=== PATIENT | female | born 1945 | race Caucasian/White ===

== ENCOUNTER 2021-01-27 07:44 | Observation (INO) | payer MEDICARE, SELFPAY ==
--- NOTE | ~2021-01-27 | CT_ITS ---
EXAMINATION: CT ABDOMEN AND PELVIS WITH CONTRAST CLINICAL INFORMATION: Periumbilical abdominal tenderness. Diarrhea. COMPARISON: Previous CT of the abdomen and pelvis June [address] September 2018 TECHNIQUE: Multidetector volumetric images were obtained from the superior aspect of the liver through the pubic symphysis following administration 75 mL of Omnipaque 350 intravenous contrast. Sagittal and coronal reformatted images were obtained on the technologist's workstation. Oral contrast: Yes This CT examination was performed using dose optimization techniques as appropriate, variously including the following: *Automated exposure control *Adjustment of mA and/or kV according to patient size (this includes techniques or standardized protocols for targeted exams where dose is matched to indication/reason for exam; i.e. extremities or head) *Use of iterative reconstruction technique DLP: 390 mGy-cm FINDINGS: LUNG BASES: There is evidence of severe interstitial disease at the lung bases. There is a 6 x 8 mm right lower lobe nodule axial image 10 series 7. This is new from previous exams. LIVER, GALLBLADDER, AND BILIARY TREE: The gallbladder has been removed. There is intra and extrahepatic biliary duct dilatation. The common bile duct is markedly dilated measuring up to 2.2 cm in diameter. This tapers smoothly in the head of the pancreas. This is similar to previous exam. No common bile duct stone is appreciated. The liver is otherwise unremarkable. PANCREAS: Unremarkable. SPLEEN: Unremarkable. ADRENAL GLANDS: Unremarkable. KIDNEYS AND URETERS: There is right hydronephrosis. The right proximal ureter is dilated the right distal ureter does not appear dilated. No stone is seen. There is abnormal soft tissue seen in the retroperitoneum which may be because of a right ureteral obstruction. The left kidney is smaller than the right. There are areas of left renal cortical thinning or scarring in the left kidney and calyceal dilatation. No dilatation of the left renal pelvis or ureter is seen. BLADDER: Not optimally distended. There is question of mild diffuse bladder wall thickening and some stranding of the perivesicular fat. This is similar to previous exam. GASTROINTESTINAL TRACT: There are fluid-filled loops of small and large bowel. The large bowel is dilated down to the rectum. Correlation with rectal exam to exclude an obstructing rectal lesion is seen. The appendix is not identified. The stomach is unremarkable. ABDOMINAL WALL: There are postsurgical changes to the anterior abdominal wall. LYMPH NODES: There is new abnormal soft tissue seen in the retroperitoneum of the lower abdomen. This is seen in the aortocaval region and appears to significantly narrow the IVC. Appearance is concerning for lymphadenopathy/a neoplastic process. Retroperitoneal fibrosis should also be considered. There is a prominent right inguinal lymph node. This is only partially visualized. This measures 1.6 cm in transverse dimension and appears unchanged. VASCULAR: The IVC appears occluded or narrowed by the new abnormal soft tissue in the retroperitoneum. PELVIC VISCERA: The uterus and ovaries appear to have been removed. There is prominent soft tissue seen in the perineal region. There is a slightly high attenuation asymmetric area in the right perineum measuring 1.3 x 1.8 cm axial image 83 series 3. This is similar to previous exam. OSSEOUS STRUCTURES: There are degenerative changes of the spine and hip joints. No fracture or focal lesion is seen. CT/CT abdomen pelvis w con IMPRESSION: New right hydronephrosis and right proximal ureteral dilatation. The right ureter is dilated down to abnormal new retroperitoneal soft tissue. Differential would include lymphadenopathy and retroperitoneal fibrosis. This narrows IVC. Fluid-filled loops of small and large bowel. The colon is distended and fluid-filled down to the rectum. This probably represents an ileus. Correlation with physical exam to exclude obstructing rectal lesion is recommended. Intra and extrahepatic biliary duct dilatation. Post cholecystectomy. This is stable from previous exams. Severe interstitial lung disease. New 8 mm right lower lobe nodule worrisome for neoplasm. Findings were communicated to Julissa Moser by telephone on 01/27/2021 at 12:20 PM.
--- NOTE | ~2021-01-27 | XR_ITS ---
EXAMINATION: XR ABDOMEN KUB CLINICAL INDICATION: Follow up ileus. COMPARISON: CT of the abdomen and pelvis done on 01/27/2021. TECHNIQUE: AP view of the abdomen. FINDINGS: Nonspecific bowel gas pattern is noted with evidence of gas seen within the large bowel to the level of the rectum. No evidence of any bowel distention is present. The visualized part of the lung dodd appear abnormal showing coarse reticular pattern, most consistent with interstitial lung disease. Postsurgical changes of prior cholecystectomy is noted. XR/XR KUB IMPRESSION: Decompressed bowel gas pattern. Abnormal lung dodd showing features consistent with interstitial lung disease.
--- NOTE | ~2021-01-27 | NM_ITS ---
EXAMINATION: RENAL DYNAMIC IMAGING STUDY WITH LASIX CLINICAL INFORMATION: Hydronephrosis right. Evaluate right side function. History of UTI. COMPARISON: No previous radionuclide renal scan is available for comparison. The diagnostic CT scan of the abdomen and pelvis, dated 01/27/2021, is available for comparison. TECHNIQUE: Serial gamma scintillation camera images were obtained over the posterior trunk during the initial transit and subsequent distribution of a bolus intravenous injection of 10 mCi of Tc-99m DTPA. At 30 minutes later, 31 mg of Lasix was administered intravenously and an additional 20 minutes of images obtained. Because of the patient's urgency to void, this study was terminated prior to the routine 30 minutes post Lasix administration. A post voiding image was obtained. FINDINGS: Initial rapid sequence images show there is moderately diminished perfusion to the left kidney. Perfusion to the right kidney appears normal. Subsequent sequential static images obtained up to 30 minutes show good concentration in the right kidney but moderately diminished concentration in the left kidney. Left kidney appears significantly smaller in size than the right. There is a prominent medullary void in the right kidney which subsequently accumulates excretory activity and is therefore a dilated right renal pelvis. Excretory function is visualized bilaterally by 3 minutes post injection. At 30 minutes postinjection there is visualization of a small amount of urinary bladder activity. At this time there is moderate dilatation and marked retention in the right renal collecting system which appears mildly prominent, but there is no significant retained activity in the left renal pelvis. Because of the patient's urgency to void, this study was terminated earlier than usual. A single post void image shows moderate retention in the right renal collecting system but no significant retention on the left. There is only minimal activity in urinary bladder at this time. Following Lasix administrationT-1/2 washout times following Lasix administration measured from the time of peak activity in each kidney are: Left 14 minutes and right 16 minutes. The relative function of the two kidneys based on the 2-3 minute images are: Left 27% and right 73%. NM/NM renal imaging IMPRESSION: LEFT KIDNEY: This kidney is significantly smaller than the right and shows significantly diminished perfusion and function. Mild to moderate caliectasis is present but there is no dilatation or abnormal retention in the left renal pelvis. Significant outflow obstruction is not present. RIGHT KIDNEY: This kidney is significantly larger than the left and shows significantly better perfusion and function than the left, as quantitated above. Moderate hydronephrosis is present and low-grade partial outflow obstruction, likely at the ureteropelvic junction, is present.
--- NOTE | ~2021-01-27 | XR_ITS ---
EXAMINATION: XR CHEST CLINICAL INFORMATION: Wheezing COMPARISON: Previous chest x-ray and chest CT scan September 2018 TECHNIQUE: Frontal view of the chest was obtained. FINDINGS: The cardiac and mediastinal contours are stable. There are increased interstitial markings suggestive of chronic interstitial lung disease. This may be slightly increased from previous exam from previous exam. No evidence of acute pneumonia is seen. There is no pleural effusion or pneumothorax. There are degenerative changes of the spine and mild scoliosis. XR/XR chest 1V IMPRESSION: Interstitial lung disease.
[2021-01-27 08:16] VITALS: BP 103/63; PULSE 80; RESP 16; TEMP 36.4; O2SAT 100; BMI 23.6
--- NOTE | 2021-01-27 08:39 | ECG_ITS ---
Test Reason : ABD PAIN Blood Pressure : / mmHG Vent. Rate : 069 BPM Atrial Rate : 069 BPM P-R Int : 138 ms QRS Dur : 080 ms QT Int : 400 ms P-R-T Axes : 063 062 031 degrees QTc Int : 428 ms Normal sinus rhythm Possible Left atrial enlargement Borderline ECG When compared with ECG of 11-FEB-2019 21:08, No significant change was found Referred By: Julissa Moser Electronically Signed By:DAVE MARIA
--- NOTE | 2021-01-27 08:46 | PC.NURSE ---
Spoke to pts daughter Pratima (pt poor historian, baseline confusion) who states pt has had abd pain x 4 days with low back pain and diarrhea. Pt is also lactose and intolerant and at times consumes dairy at home. Pt also is 02 dependent with ambulation. Daughter also reports sl increase in confusion lately. Contact for daughter [phone]
--- NOTE | 2021-01-27 08:51 | ED_ITS ---
HPI - Abdominal Pain General Chief Complaint: Abdominal Pain Stated Complaint: ABD PAIN DIARRHEA Time Seen by Provider: 01/27/21 08:08 Source: patient and family History of Present Illness HPI narrative: 75-year-old female with past medical history of COPD on chronic O2, diabetes, CKD, ovarian CA S/P hysterectomy, dementia, DVTs on Eliquis, presenting to the ED complaining of abdominal pain and nonbloody diarrhea x4 days. Patient is poor historian due to baseline dementia, most history obtained from daughter. Denies fever, chills, suspicious food intake, recent travel, dysuria/hematuria Related Data Allergies Allergy/AdvReac Type Severity Reaction Status Date / Time fish derived [FISH] Allergy Intermediate RASH Verified 01/27/21 08:45 iodine [IODINE] Allergy Intermediate BLISTERS Verified 01/27/21 08:45 Penicillins [PENICILLINS] Allergy Mild RASH Verified 01/27/21 08:45 oxycodone [OXYCODONE] Allergy Unknown ITCHING Verified 01/27/21 08:45 Review of Systems Review of Systems Constitutional: No Fever, No Chills Cardiovascular: No Chest Pain, +chronic SOB Respiratory: No Cough Gastrointestinal: No Nausea, No Vomiting,+ Diarrhea, No Constipation, + Abdominal pain, No Hematochezia, No Melena Genitourinary: No Dysuria, No Hematuria, No Flank Pain Skin: No Skin Lesions, No rash History limited due to patient's baseline dementia Yes all other systems are reviewed and are negative Physical Exam Vital Signs: Vital Signs: Last Vital Signs Temp 97.6 F 01/27/21 08:16 Pulse 80 01/27/21 13:14 Resp 16 01/27/21 13:14 BP 110/68 01/27/21 13:14 Pulse Ox 98 01/27/21 13:14 Body Mass Index 23.6 Const: General: cooperative, healthy appearing and comfortable Orie ntation/consciousness: oriented to person and oriented to place Limitations: no limitations HENMT: Head: Yes normal to inspection Ears: hearing grossly normal bilaterally General nose exam: Normal external nose present Face and sinus: Yes normal facial exam Eyes: General: appearance normal, both eyes and all related structures EOM: EOMs intact bilaterally Neck: Neck: Yes normal visual inspection Resp: Effort & Inspection: normal respiratory effort Auscultation: clear to auscultation bilaterally and wheezes expiratory wheezes and throughout Cardio: Rate: regular rate Heart sounds: S1 normal heart sound present and S2 normal heart sound present GI: Inspection: Yes normal to inspection Palpation (GI): Soft to palpation, Tenderness to palpation present (GI) periumbilically, no guarding and not rigid : General: Yes no CVA tenderness Back/Spine/Pelvis: Back: no CVA tenderness Skin: Rashes: no rashes Wounds: no wounds Neuro: General: oriented to person and oriented to place Extrem: General: Yes normal to inspection and Yes no pedal edema Course Course Course Narrative: -no leukocytosis. H&H stable. Labs otherwise unremarkable XR chest 1V IMPRESSION: Interstitial lung disease. CT abdomen pelvis w con IMPRESSION: New right hydronephrosis and right proximal ureteral dilatation. The right ureter is dilated down to abnormal new retroperitoneal soft tissue. Differential would include lymphadenopathy and retroperitoneal fibrosis. This narrows IVC. Fluid-filled loops of small and large bowel. The colon is distended and fluid-filled down to the rectum. This probably represents an ileus. Correlation with physical exam to exclude obstructing rectal lesion is recommended. Intra and extrahepatic biliary duct dilatation. Post cholecystectomy. This is stable from previous exams. Severe interstitial lung disease. New 8 mm right lower lobe nodule worrisome for neoplasm. >> no appreciable mass/lesion on rectal exam. Case discussed with hospitalist. Plan for admission for further evaluation/workup -UA contaminated but infected. IV ceftriaxone ordered MDM - Abdominal Pain MDM Narrative Medical decision making narrative: 75-year-old female with past medical history of COPD on chronic O2, diabetes, CKD, ovarian CA S/P hysterectomy, dementia, DVTs on Eliquis, presenting to the ED complaining of abdominal pain and nonbloody diarrhea x4 days. On exam VSS, NAD, baseline dementia/confused, lungs with expiratory wheeze, abdomen soft with mild periumbilical tenderness to palpation, no rebound or guarding. Concern for gastroenteritis vs colitis vs food poisoning vs appendicitis. Rule out other infectious etiology and dehydration Plan: Labs, UA, CT, IVF, reassess Medical Records Attestation: I reviewed the patient's medical records. Lab Data Attestation: I reviewed the patient's lab results. Result diagrams: 01/27/21 09:30 01/27/21 09:30 Labs: Lab Results 01/27/21 01/27/21 01/27/21 Range/Units 09:30 09:30 09:30 WBC 7.6 (4.8-10.8) X10*3/uL RBC 4.05 L (4.20-5.50) X10*6/uL Hgb 12.7 (12.0-16.0) g/dl Hct 40.3 (37-47) % MCV 99.5 H (80-98) fL MCH 31.4 (27.0-33.0) pg MCHC 31.5 (31.0-35.0) g/dl RDW 14.5 (11.0-16.0) % Plt Count 431 H (160-400) X10*3/uL MPV 9.4 (9.4-12.3) fL Immature Gran % (Auto) 0.1 (0.0-0.4) % Neut % (Auto) 63.3 (45-73) % Lymph % (Auto) 19.8 L (20-40) % [place] % (Auto) 10.6 (2-11) % Eos % (Auto) 5.4 H (0-4) % Baso % (Auto) 0.8 (0-2) % Lymph # (Auto) 1.5 (1.2-4.9) X10*3/uL [place] # (Auto) 0.8 (0.1-1.2) X10*3/uL Eos # (Auto) 0.4 (0.0-0.4) X10*3/uL Baso # (Auto) 0.1 (0.0-0.2) X10*3/uL Abs Immat Gran (auto) 0.01 (0.00-0.03) X10*3/uL Absolute Neuts (auto) 4.8 (2.0-8.3) X10*3/uL Absolute Nucleated RBC 0.000 (0.0-0.012) X10*3/uL Nucleated RBC % (auto) 0.0 (0.0-0.2) /100WBC PT 19.7 H (10.8-13.0) SEC INR 1.7 H (0.9-1.1) APTT 38.0 (24.1-38.0) SEC Sodium 142 (135-145) mmol/L Potassium 4.4 (3.3-5.1) mmol/L Chloride 105 (96-108) mmol/L Carbon Dioxide 27 (22-29) mmol/L Anion Gap 14 (12-20) BUN 17 H (9-16) mg/dL Creatinine 1.16 (0.5-1.4) mg/dL Estim Creat Clear Calc 36.7 Estimated GFR 46 Random Glucose 96 (60-115) mg/dL Calcium 9.3 (8.4-10.2) mg/dL Magnesium 1.7 (1.6-2.6) mg/dL Total Bilirubin 0.5 (0.0-1.0) mg/dL Direct Bilirubin 0.2 (0.0-0.5) mg/dL AST 18 (5-31) U/L ALT 10 (0-31) U/L Alkaline Phosphatase 117 (39-117) U/L B-Natriuretic Peptide (<100) pg/mL Total Protein 7.8 (6.5-8.0) g/dL Albumin 3.8 (3.5-5.0) g/dL Lipase (8-78) U/L Urine Color Urine Appearance Urine pH (5.0-8.0) Ur Specific [place] (1.005-1.025) Urine Protein (NEG-TRACE) MG/DL Urine Glucose (UA) (NEG) MG/DL Urine Ketones (NEG) MG/DL Urine Blood (NEG) Urine Nitrite (NEG) Ur Leukocyte Esterase (NEG) Urine RBC (0) /HPF Urine WBC (0-4) /HPF Ur Squamous Epith Cells /LPF Urine Bacteria /LPF Coronavirus (PCR) (Negative) Influenza Type A (PCR) (Negative) Influenza Type B (PCR) (Negative) RSV RNA Qual (PCR) (Negative) 01/27/21 01/27/21 01/27/21 Range/Units 09:30 09:30 09:30 WBC (4.8-10.8) X10*3/uL RBC (4.20-5.50) X10*6/uL Hgb (12.0-16.0) g/dl Hct (37-47) % MCV (80-98) fL MCH (27.0-33.0) pg MCHC (31.0-35.0) g/dl RDW (11.0-16.0) % Plt Count (160-400) X10*3/uL MPV (9.4-12.3) fL Immature Gran % (Auto) (0.0-0.4) % Neut % (Auto) (45-73) % Lymph % (Auto) (20-40) % [place] % (Auto) (2-11) % Eos % (Auto) (0-4) % Baso % (Auto) (0-2) % Lymph # (Auto) (1.2-4.9) X10*3/uL [place] # (Auto) (0.1-1.2) X10*3/uL Eos # (Auto) (0.0-0.4) X10*3/uL Baso # (Auto) (0.0-0.2) X10*3/uL Abs Immat Gran (auto) (0.00-0.03) X10*3/uL Absolute Neuts (auto) (2.0-8.3) X10*3/uL Absolute Nucleated RBC (0.0-0.012) X10*3/uL Nucleated RBC % (auto) (0.0-0.2) /100WBC PT (10.8-13.0) SEC INR (0.9-1.1) APTT (24.1-38.0) SEC Sodium (135-145) mmol/L Potassium (3.3-5.1) mmol/L Chloride (96-108) mmol/L Carbon Dioxide (22-29) mmol/L Anion Gap (12-20) BUN (9-16) mg/dL Creatinine (0.5-1.4) mg/dL Estim Creat Clear Calc Estimated GFR Random Glucose (60-115) mg/dL Calcium (8.4-10.2) mg/dL Magnesium (1.6-2.6) mg/dL Total Bilirubin (0.0-1.0) mg/dL Direct Bilirubin (0.0-0.5) mg/dL AST (5-31) U/L ALT (0-31) U/L Alkaline Phosphatase (39-117) U/L B-Natriuretic Peptide 15 (<100) pg/mL Total Protein (6.5-8.0) g/dL Albumin (3.5-5.0) g/dL Lipase 21 (8-78) U/L Urine Color Urine Appearance Urine pH (5.0-8.0) Ur Specific [place] (1.005-1.025) Urine Protein (NEG-TRACE) MG/DL Urine Glucose (UA) (NEG) MG/DL Urine Ketones (NEG) MG/DL Urine Blood (NEG) Urine Nitrite (NEG) Ur Leukocyte Esterase (NEG) Urine RBC (0) /HPF Urine WBC (0-4) /HPF Ur Squamous Epith Cells /LPF Urine Bacteria /LPF Coronavirus (PCR) NEGATIVE (Negative) Influenza Type A (PCR) NEGATIVE (Negative) Influenza Type B (PCR) NEGATIVE (Negative) RSV RNA Qual (PCR) NEGATIVE (Negative) 01/27/21 Range/Units 11:06 WBC (4.8-10.8) X10*3/uL RBC (4.20-5.50) X10*6/uL Hgb (12.0-16.0) g/dl Hct (37-47) % MCV (80-98) fL MCH (27.0-33.0) pg MCHC (31.0-35.0) g/dl RDW (11.0-16.0) % Plt Count (160-400) X10*3/uL MPV (9.4-12.3) fL Immature Gran % (Auto) (0.0-0.4) % Neut % (Auto) (45-73) % Lymph % (Auto) (20-40) % [place] % (Auto) (2-11) % Eos % (Auto) (0-4) % Baso % (Auto) (0-2) % Lymph # (Auto) (1.2-4.9) X10*3/uL [place] # (Auto) (0.1-1.2) X10*3/uL Eos # (Auto) (0.0-0.4) X10*3/uL Baso # (Auto) (0.0-0.2) X10*3/uL Abs Immat Gran (auto) (0.00-0.03) X10*3/uL Absolute Neuts (auto) (2.0-8.3) X10*3/uL Absolute Nucleated RBC (0.0-0.012) X10*3/uL Nucleated RBC % (auto) (0.0-0.2) /100WBC PT (10.8-13.0) SEC INR (0.9-1.1) APTT (24.1-38.0) SEC Sodium (135-145) mmol/L Potassium (3.3-5.1) mmol/L Chloride (96-108) mmol/L Carbon Dioxide (22-29) mmol/L Anion Gap (12-20) BUN (9-16) mg/dL Creatinine (0.5-1.4) mg/dL Estim Creat Clear Calc Estimated GFR Random Glucose (60-115) mg/dL Calcium (8.4-10.2) mg/dL Magnesium (1.6-2.6) mg/dL Total Bilirubin (0.0-1.0) mg/dL Direct Bilirubin (0.0-0.5) mg/dL AST (5-31) U/L ALT (0-31) U/L Alkaline Phosphatase (39-117) U/L B-Natriuretic Peptide (<100) pg/mL Total Protein (6.5-8.0) g/dL Albumin (3.5-5.0) g/dL Lipase (8-78) U/L Urine Color YELLOW Urine Appearance CLOUDY Urine pH 6.0 (5.0-8.0) Ur Specific [place] 1.025 (1.005-1.025) Urine Protein NEG (NEG-TRACE) MG/DL Urine Glucose (UA) NEG (NEG) MG/DL Urine Ketones NEG (NEG) MG/DL Urine Blood TRACE (NEG) Urine Nitrite NEG (NEG) Ur Leukocyte Esterase 2+ H (NEG) Urine RBC 0-2 (0) /HPF Urine WBC 30-49 H (0-4) /HPF Ur Squamous Epith Cells 4+ /LPF Urine Bacteria 4+ /LPF Coronavirus (PCR) (Negative) Influenza Type A (PCR) (Negative) Influenza Type B (PCR) (Negative) RSV RNA Qual (PCR) (Negative) Discharge Plan Discharge Clinical Impression: Acute UTI, Ileus, Hydronephrosis, Lung nodule Patient Disposition: Admitted As Inpatient [facility] Past Medical History Attestation statement: The following information was validated with the patient. Medical History (Updated 01/27/21 @ 14:30 by MIYA Fuentes) COPD (chronic obstructive pulmonary disease) Diabetes Kidney disease Ovarian cancer Social History Social History Smoking Status: Never smoker Use of substances other than those prescribed or required for medical reasons: No Advance Directives: No Advance Directives Information Provided: No
[2021-01-27] MEDS: 0.9 % Sodium Chloride 1,000 ML 999 ML IVCONT (09:34)
[2021-01-27 09:36] LABS: MANUAL DIFF FLAG NO
[2021-01-27 09:39] LABS: Basophils Absolute Auto 0.1 X10*3/uL (0.0-0.2); Basophils Percent Auto 0.8 % (0-2); Eosinophils Absolute Auto 0.4 X10*3/uL (0.0-0.4); Eosinophils Percent Auto 5.4 % (0-4); Hematocrit 40.3 % (37-47); Hemoglobin 12.7 g/dl (12.0-16.0); Imm Gran Abs Auto 0.01 X10*3/uL (0.00-0.03); Imm Gran Pct Auto 0.1 % (0.0-0.4); Lymphocytes Absolute Auto 1.5 X10*3/uL (1.2-4.9); Lymphocytes Percent Auto 19.8 % (20-40); Mean Corpuscular HGB Conc 31.5 g/dl (31.0-35.0); Mean Corpuscular Hemoglobin 31.4 pg (27.0-33.0); Mean Corpuscular Volume 99.5 fL (80-98); Mean Platelet Volume 9.4 fL (9.4-12.3); Monocytes Absolute Auto 0.8 X10*3/uL (0.1-1.2); Monocytes Percent Auto 10.6 % (2-11); Neutrophils Absolute Auto 4.8 X10*3/uL (2.0-8.3); Neutrophils Percent Auto 63.3 % (45-73); Platelet Count 431 X10*3/uL (160-400); Red Blood Count 4.05 X10*6/uL (4.20-5.50); Red Cell Distribution Width 14.5 % (11.0-16.0); White Blood Count 7.6 X10*3/uL (4.8-10.8)
[2021-01-27] MEDS: Albuterol Sulfate 90 MCG 8 GM INHALER 4 PUFF INHALE (09:40)
--- NOTE | 2021-01-27 09:45 | PC.NURSE ---
Pt resting comfortably, on 2lpm via nc with sat at 99%. fine crackles heard to right middle and lower lobes, no sob or distress. NSR on tele. Awaiting lab results/xray
[2021-01-27 09:54] LABS: INTERNATIONAL NORM RATIO 1.7 (0.9-1.1); Prothrombin Time 19.7 SEC (10.8-13.0)
[2021-01-27 10:02] LABS: Lipase 21 U/L (8-78)
[2021-01-27 10:03] LABS: Alanine Aminotransferase 10 U/L (0-31); Albumin Level 3.8 g/dL (3.5-5.0); Alkaline Phosphatase 117 U/L (39-117); Anion Gap 14 (12-20); Aspartate Amino Transferase 18 U/L (5-31); Bilirubin Direct 0.2 mg/dL (0.0-0.5); Bilirubin Total 0.5 mg/dL (0.0-1.0); Blood Urea Nitrogen 17 mg/dL (9-16); Calcium 9.3 mg/dL (8.4-10.2); Carbon Dioxide 27 mmol/L (22-29); Chloride 105 mmol/L (96-108); Creatinine Clr Calc Pharmacy 36.7; Estimated Glomerular Filt Rate 46; Glucose Random 96 mg/dL (60-115); Magnesium 1.7 mg/dL (1.6-2.6); Potassium 4.4 mmol/L (3.3-5.1); Sodium 142 mmol/L (135-145); Total Protein 7.8 g/dL (6.5-8.0)
[2021-01-27 10:07] LABS: B Type Natriuretic Peptide 15 pg/mL (<100)
[2021-01-27 10:19] LABS: Influenza A PCR NEGATIVE (Negative); Influenza B PCR NEGATIVE (Negative); Resp Syncy Virus RNA Qual PCR NEGATIVE (Negative); SARS COV2 PCR INHOUSE NEGATIVE (Negative)
[2021-01-27 10:59] VITALS: BP 113/68; PULSE 78; RESP 16; O2SAT 97
[2021-01-27 11:14] LABS: Glucose Urine UA NEG (NEG); Leukocyte Esterase Urine 2+ (NEG); Nitrite Urine NEG (NEG); Specific Gravity - Urine 1.025 (1.005-1.025); UACC Culture Trigger YES; Urine Blood TRACE (NEG); Urine Ketones NEG (NEG); Urine Protein NEG (NEG-TRACE)
[2021-01-27 11:15] LABS: Appearance Urine CLOUDY; Color Urine YELLOW
[2021-01-27] MEDS: iohexoL 350 MG/ML 75 ML INFUS..BTL IV (11:31)
[2021-01-27 11:36] LABS: Bacteria Urine 4+ /LPF; RBC Urine 0-2 /HPF (0); Squamous Epithelial Cell Urine 4+ /LPF; WBC Urine 30-49 /HPF (0-4)
[2021-01-27] MEDS: diphenhydrAMINE HCL 50 MG/ML VIAL IVPUSH (11:47)
[2021-01-27 13:14] VITALS: BP 110/68; PULSE 80; RESP 16; O2SAT 98
--- NOTE | 2021-01-27 14:10 | PC.NURSE ---
This RN and Julissa HOLLIDAY to bedside for rectal exam
--- NOTE | 2021-01-27 14:26 | PM.EVENT ---
Event Note Date of Service: 01/27/21 Event Note: Patient seen and examined independently and was present during hunt portion of E/M service. Agree with midlevel's history, physical, assessment, and plan. 75F presented with abdominal pain found to have ileus and right hydro with suspicious retroperitoneal mass and lung nodule laxatives ocnology
[2021-01-27] MEDS: cefTRIAXone sodium 1 GM in 0.9 % Sodium Chloride 50 ML IV (14:37)
[2021-01-27 14:40] VITALS: BP 124/70; PULSE 77; RESP 16; O2SAT 98
--- NOTE | 2021-01-27 14:41 | PC.NURSE ---
Plan for admission Julissa HOLLIDAY spoke to daughter regarding update/results and plan for admission. Pt denies pain or discomfort at this time. NSR on tele
--- NOTE | 2021-01-27 15:27 | P.HPHOSP_ITS ---
History of Present Illness Date of Service: 01/27/21 Chief Complaint: Abdominal pain This is a 75-year-old female who presents to the emergency department with abdominal pain. She reports abdominal pain for the past 4 days primarily located in her left lower quadrant. She denies nausea or vomiting. She has had some diarrhea but reports a small formed stool yesterday. Currently she is not experiencing any abdominal pain. She reports decreased appetite as well as weight loss, although she is unsure how much. Lab work was unremarkable. Scan of the abdomen which showed new right hydronephrosis and right proximal ureteral dilatation as well as abnormal new retroperitoneal soft tissue. Also seen were fluid filled loops of small and large bowel the colon is distended and fluid- filled down to the rectum. This probably represents an ileus. A new 8 mm right lower lobe nodule is also present and worrisome for neoplasm. Review of Systems Review of Systems: Yes all other systems are reviewed and are negative Constitutional: Constitutional: Denies chills and Denies fever(s) Cardiovascular: Cardiovascular: Denies chest pain and Denies dyspnea Respiratory: Respiratory: Denies cough and Denies dyspnea Gastrointestinal: Gastrointestinal: Reports abdominal pain, Reports early satiety, Reports diarrhea, Denies nausea and Denies vomiting [facility] Medical History (Updated 01/27/21 @ 15:37 by MIYA Edmonds) CKD (chronic kidney disease) COPD (chronic obstructive pulmonary disease) Diabetes DVT (deep venous thrombosis) Endometrial adenocarcinoma HTN (hypertension) Kidney disease Pulmonary fibrosis Functional capacity: uses cane/walker Family History Father Colon cancer Family history: reviewed and not pertinent Surgical History (Updated 01/27/21 @ 15:37 by MIYA Edmonds) H/O hysterectomy with oophorectomy Hx of cholecystectomy S/P IVC filter Social History (Updated 01/27/21 @ 15:38 by MIYA Edmonds) Household Members: Other Alcohol intake: never Smoking Status: Never smoker Use of substances other than those prescribed or required for medical reasons: No Advance Directives: No Advance Directives Information Provided: No Meds Allergies Allergy/AdvReac Type Severity Reaction Status Date / Time fish derived [FISH] Allergy Intermediate RASH Verified 01/27/21 08:45 iodine [IODINE] Allergy Intermediate BLISTERS Verified 01/27/21 08:45 Penicillins [PENICILLINS] Allergy Mild RASH Verified 01/27/21 08:45 oxycodone [OXYCODONE] Allergy Unknown ITCHING Verified 01/27/21 08:45 Active Medications: Current Medications Generic Name Dose Route Start Last Admin Trade Name Freq PRN Reason Stop Dose Admin Pharmacy Consult 1 each 01/27/21 15:01 Consult Rx Perform Med Rec MISCELLANE ONCE PRN Consult order Home Medications Medication Instructions Recorded Confirmed Last Taken Type apixaban [Eliquis] 5 mg PO BID 01/27/21 01/27/21 Unknown History atorvastatin 20 mg PO DAILY 01/27/21 01/27/21 Unknown History donepezil 5 mg PO BEDTIME 01/27/21 01/27/21 Unknown History dulaglutide [Trulicity] 0.75 mg SUBCUT QWEEK 01/27/21 01/27/21 Unknown History famotidine 20 mg PO BID 01/27/21 01/27/21 Unknown History glipizide 5 mg PO BIDAC 01/27/21 01/27/21 Unknown History halobetasol propionate 1 appl TOPICAL BID 01/27/21 01/27/21 Unknown History ipratropium-albuterol 1 vial INHALATION QID PRN 01/27/21 01/27/21 Unknown History Physical Exam Vital Signs and Narrative: Vital Signs: Last Vital Signs Temp 97.6 F 01/27/21 08:16 Pulse 77 01/27/21 14:40 Resp 16 01/27/21 14:40 BP 124/70 01/27/21 14:40 Pulse Ox 98 01/27/21 14:40 Body Mass Index 23.6 Const: General: cooperative, comfortable, no acute distress, alert and awake Nutritional Appearance: well nourished Orientation/consciousness: patient oriented x3 HENMT: Head: Yes normocephalic and Yes atraumatic Eyes: Sclerae: sclerae normal Chest: Chest palpation & inspection: normal inspection of the chest Resp: Effort & Inspection: normal respiratory effort and no respiratory distress Auscultation: clear to auscultation bilaterally Cardio: Rate: regular rate Rhythm: regular rhythm GI: Palpation (GI): Soft to palpation and nontender Skin: General skin exam: no rashes or lesions noted Neuro: General: patient oriented x3 Cranial nerves: Yes CN's II-XII intact bilaterally and Yes Bilaterally intact EOM present Extrem: General: Yes normal to inspection Results Labs CBC and Chem 7: 01/27/21 09:30 01/27/21 09:30 Labs: Laboratory Results - last 24 hr 01/27/21 01/27/21 01/27/21 09:30 09:30 09:30 MCV 99.5 H MCH 31.4 MCHC 31.5 RDW 14.5 Plt Count 431 H MPV 9.4 Immature Gran % (Auto) 0.1 Neut % (Auto) 63.3 Lymph % (Auto) 19.8 L [place] % (Auto) 10.6 Eos % (Auto) 5.4 H Baso % (Auto) 0.8 Lymph # (Auto) 1.5 [place] # (Auto) 0.8 Eos # (Auto) 0.4 Baso # (Auto) 0.1 Abs Immat Gran (auto) 0.01 Absolute Neuts (auto) 4.8 Absolute Nucleated RBC 0.000 Nucleated RBC % (auto) 0.0 PT 19.7 H INR 1.7 H APTT 38.0 Anion Gap 14 Estim Creat Clear Calc 36.7 Estimated GFR 46 Random Glucose 96 Calcium 9.3 Magnesium 1.7 Total Bilirubin 0.5 Direct Bilirubin 0.2 AST 18 ALT 10 Alkaline Phosphatase 117 B-Natriuretic Peptide Total Protein 7.8 Albumin 3.8 Lipase Urine Color Urine Appearance Urine pH Ur Specific [place] Urine Protein Urine Glucose (UA) Urine Ketones Urine Blood Urine Nitrite Ur Leukocyte Esterase Urine RBC Urine WBC Ur Squamous Epith Cells Urine Bacteria Coronavirus (PCR) Influenza Type A (PCR) Influenza Type B (PCR) RSV RNA Qual (PCR) 01/27/21 01/27/21 01/27/21 09:30 09:30 09:30 MCV MCH MCHC RDW Plt Count MPV Immature Gran % (Auto) Neut % (Auto) Lymph % (Auto) [place] % (Auto) Eos % (Auto) Baso % (Auto) Lymph # (Auto) [place] # (Auto) Eos # (Auto) Baso # (Auto) Abs Immat Gran (auto) Absolute Neuts (auto) Absolute Nucleated RBC Nucleated RBC % (auto) PT INR APTT Anion Gap Estim Creat Clear Calc Estimated GFR Random Glucose Calcium Magnesium Total Bilirubin Direct Bilirubin AST ALT Alkaline Phosphatase B-Natriuretic Peptide 15 Total Protein Albumin Lipase 21 Urine Color Urine Appearance Urine pH Ur Specific [place] Urine Protein Urine Glucose (UA) Urine Ketones Urine Blood Urine Nitrite Ur Leukocyte Esterase Urine RBC Urine WBC Ur Squamous Epith Cells Urine Bacteria Coronavirus (PCR) NEGATIVE Influenza Type A (PCR) NEGATIVE Influenza Type B (PCR) NEGATIVE RSV RNA Qual (PCR) NEGATIVE 01/27/21 11:06 MCV MCH MCHC RDW Plt Count MPV Immature Gran % (Auto) Neut % (Auto) Lymph % (Auto) [place] % (Auto) Eos % (Auto) Baso % (Auto) Lymph # (Auto) [place] # (Auto) Eos # (Auto) Baso # (Auto) Abs Immat Gran (auto) Absolute Neuts (auto) Absolute Nucleated RBC Nucleated RBC % (auto) PT INR APTT Anion Gap Estim Creat Clear Calc Estimated GFR Random Glucose Calcium Magnesium Total Bilirubin Direct Bilirubin AST ALT Alkaline Phosphatase B-Natriuretic Peptide Total Protein Albumin Lipase Urine Color YELLOW Urine Appearance CLOUDY Urine pH 6.0 Ur Specific [place] 1.025 Urine Protein NEG Urine Glucose (UA) NEG Urine Ketones NEG Urine Blood TRACE Urine Nitrite NEG Ur Leukocyte Esterase 2+ H Urine RBC 0-2 Urine WBC 30-49 H Ur Squamous Epith Cells 4+ Urine Bacteria 4+ Coronavirus (PCR) Influenza Type A (PCR) Influenza Type B (PCR) RSV RNA Qual (PCR) Imaging Radiologist's Impressions: Impressions Chest X-Ray 01/27/21 08:40 IMPRESSION: Interstitial lung disease. Abdomen/Pelvis CT 01/27/21 10:53 IMPRESSION: New right hydronephrosis and right proximal ureteral dilatation. The right ureter is dilated down to abnormal new retroperitoneal soft tissue. Differential would include lymphadenopathy and retroperitoneal fibrosis. This narrows IVC. Fluid-filled loops of small and large bowel. The colon is distended and fluid-filled down to the rectum. This probably represents an ileus. Correlation with physical exam to exclude obstructing rectal lesion is recommended. Intra and extrahepatic biliary duct dilatation. Post cholecystectomy. This is stable from previous exams. Severe interstitial lung disease. New 8 mm right lower lobe nodule worrisome for neoplasm. Findings were communicated to Julissa Moser by telephone on 01/27/2021 at 12:20 PM. Assessment and Plan (1) Lung nodule: Status: Acute (2) Hydronephrosis: Status: Acute (3) Ileus: Status: Acute This is a 75-year-old female with a history of mild dementia, diabetes, DVT, hypertension, CKD, endometrial adenocarcinoma s/p chemotherapy, radiation and total abdominal hysterectomy who presents to the ED with abdominal pain found to have ileus, right hydronephrosis and lung nodule. Right-sided hydronephrosis -urology consult New lung nodule -oncology consult new retroperitoneal soft tissue lymphadenopathy vs fibrosis ? r/t whole pelvic radiation from endometrial adenocarcinoma -oncology consult Abdominal pain Ileus on CT. no rectal mass appreciated on exam per ED Abdominal pain improved -will give dose of MiraLax asymptomatic bacteruria give empiric ceftriaxone in ED FU Urine cultures Diabetes Hold glipizide due to decreased p.o. intake Trulicity non formulary -SSI, POC On Eliquis ? r/t h/o dvt Hyperlipidemia Continue statin CKD Creatinine at baseline Mild Dementia Continue donepezil DVT prophylaxis-Eliquis this case was discussed with Dr. Tirado
[2021-01-27 15:55] VITALS: BP 121/69; PULSE 78; RESP 16; TEMP 36.4; O2SAT 98
[2021-01-27 20:00] VITALS: BP 141/83; PULSE 83; RESP 14; TEMP 36.5; O2SAT 96
[2021-01-27] MEDS: 0.9 % Sodium Chloride Flush 3 ML SYRINGE IVFLUSH ×2 (20:12→20:38)
[2021-01-27] MEDS: Donepezil HCl 5 MG TABLET PO (20:38)
[2021-01-27] MEDS: Famotidine 20 MG TABLET PO (20:38)
[2021-01-27] MEDS: Apixaban 5 MG TABLET PO (20:38)
[2021-01-27] MEDS: polyethylene glycoL 3350 17 GM POWD.PACK PO (20:38)
[2021-01-27 20:44] LABS: Glucose, Whole Blood 122 mg/dL (60-115)
[2021-01-28] VITALS (7 sets, daily range): BP systolic 101–141; BP diastolic 68–82; PULSE 86–105; RESP 14–20; TEMP 36.4–36.9; O2SAT 87–96
[2021-01-28 07:04] LABS: MANUAL DIFF FLAG NO
[2021-01-28 07:18] LABS: Basophils Absolute Auto 0.1 X10*3/uL (0.0-0.2); Basophils Percent Auto 0.5 % (0-2); Eosinophils Absolute Auto 0.5 X10*3/uL (0.0-0.4); Eosinophils Percent Auto 5.5 % (0-4); Hematocrit 38.6 % (37-47); Hemoglobin 12.5 g/dl (12.0-16.0); Imm Gran Abs Auto 0.03 X10*3/uL (0.00-0.03); Imm Gran Pct Auto 0.3 % (0.0-0.4); Lymphocytes Absolute Auto 1.4 X10*3/uL (1.2-4.9); Lymphocytes Percent Auto 15.5 % (20-40); Mean Corpuscular HGB Conc 32.4 g/dl (31.0-35.0); Mean Corpuscular Hemoglobin 31.7 pg (27.0-33.0); Mean Platelet Volume 9.6 fL (9.4-12.3); Monocytes Absolute Auto 0.9 X10*3/uL (0.1-1.2); Monocytes Percent Auto 9.9 % (2-11); Neutrophils Absolute Auto 6.3 X10*3/uL (2.0-8.3); Neutrophils Percent Auto 68.3 % (45-73); Platelet Count 425 X10*3/uL (160-400); Red Blood Count 3.94 X10*6/uL (4.20-5.50); Red Cell Distribution Width 14.1 % (11.0-16.0); White Blood Count 9.3 X10*3/uL (4.8-10.8)
[2021-01-28 07:31] LABS: Glucose, Whole Blood 77 mg/dL (60-115)
[2021-01-28 07:41] LABS: Blood Urea Nitrogen 16 mg/dL (9-16); Creatinine Clr Calc Pharmacy 41.3; Estimated Glomerular Filt Rate 52; Glucose Random 80 mg/dL (60-115)
[2021-01-28 08:03] LABS: Anion Gap 13 (12-20); Carbon Dioxide 26 mmol/L (22-29); Chloride 105 mmol/L (96-108); Potassium 4.4 mmol/L (3.3-5.1); Sodium 140 mmol/L (135-145)
[2021-01-28] MEDS: Famotidine 20 MG TABLET PO ×2 (08:29→20:41)
[2021-01-28] MEDS: Docusate Sodium 100 MG CAPSULE PO (08:29)
[2021-01-28] MEDS: Atorvastatin Calcium 20 MG TABLET PO (08:29)
[2021-01-28] MEDS: 0.9 % Sodium Chloride Flush 3 ML SYRINGE IVFLUSH ×3 (08:29→20:48)
[2021-01-28] MEDS: Apixaban 5 MG TABLET PO ×2 (08:29→20:41)
[2021-01-28] MEDS: Betamethasone Dip Aug 0.05% Cr 15 GM TUBE 1 APPL TOPICAL ×2 (08:29→20:42)
--- NOTE | 2021-01-28 09:53 | HO.PM.IMPN ---
Subjective Subjective Date of Service: 01/28/21 Interval History: abd pain resolved Cardiovascular Cardiovascular: Reports no additional cardiovascular complaints Gastrointestinal Gastrointestinal: Reports no additional gastrointestinal complaints Physical Exam Vital Signs: Vital Signs: Last Vital Signs Temp 97.5 F 01/28/21 07:14 Pulse 88 01/28/21 07:14 Resp 17 01/28/21 07:14 BP 111/72 01/28/21 07:14 Pulse Ox 96 01/28/21 07:14 Body Mass Index 23.6 General: Alert, no acute distress Resp: CTA bilateral CVS: S1,S2,RRR GI: soft, non tender, non distended Neuro: motor grossly intact Psych: appropriate affect Objective Data Current Medications Generic Name Dose Route Start Last Admin Trade Name Freq PRN Reason Stop Dose Admin Acetaminophen 650 mg 01/27/21 18:46 Acetaminophen 325 Mg Tablet PO Q6H PRN Pain, Mild (Pain Scale 1-3) Albuterol/Ipratropium 3 ml 01/27/21 18:46 Albuterol/Iprat 2.5/0.5mg 3 Ml Ampul.Neb INHALE QID PRN wheezing Apixaban 5 mg 01/27/21 21:00 01/28/21 08:29 Apixaban 5 Mg Tablet PO 5 mg BID RUBEN Administration Atorvastatin Calcium 20 mg 01/28/21 09:00 01/28/21 08:29 Atorvastatin Calcium 20 Mg Tablet PO 20 mg DAILY RUBEN Administration Betamethasone Dipropion Augmented 1 appl 01/27/21 21:00 01/28/21 08:29 Betamethasone Dip Aug 0.05% Cr 15 Gm Tube TOPICAL 1 appl BID RUBEN Administration Docusate Sodium 100 mg 01/28/21 09:00 01/28/21 08:29 Docusate Sodium 100 Mg Capsule PO 100 mg DAILY RUBEN Administration Donepezil HCl 5 mg 01/27/21 21:00 01/27/21 20:38 Donepezil Hcl 5 Mg Tablet PO 5 mg BEDTIME RUBEN Administration Famotidine 20 mg 01/27/21 21:00 01/28/21 08:29 Famotidine 20 Mg Tablet PO 20 mg BID RUBEN Administration Insulin Human Lispro 0 unit 01/27/21 18:46 01/28/21 08:16 Insulin Lispro 100 Unit/Ml 3 Ml Vial SUBCUT Not Given QIDACHS RUBEN Protocol Ondansetron HCl 4 mg 01/27/21 18:46 Ondansetron Hcl 4 Mg/2 Ml Vial IVPUSH Q8H PRN Nausea and Vomiting Pharmacy Consult 1 each 01/27/21 15:01 Consult Rx Perform Med Rec MISCELLANE ONCE PRN Consult order Sodium Chloride 3 ml 01/27/21 18:46 01/28/21 08:29 0.9 % Sodium Chloride Flush 3 Ml Syringe IVFLUSH 3 ml QSHIFT RUBEN Administration Labs CBC & Chem 7: 01/28/21 06:45 01/28/21 06:45 Microbiology Microbiology Results: Microbiology 01/27/21 10:59 Urine clean catch - Clean Catch Midstream Urine Culture - Preliminary Gram negative sreekanth Assessment and Plan (1) Lung nodule: Status: Acute (2) Hydronephrosis: Status: Acute (3) Ileus: Status: Acute Assessment and Plan: This is a 75-year-old female with a history of mild dementia, diabetes, DVT, hypertension, CKD, endometrial adenocarcinoma s/p chemotherapy, radiation and total abdominal hysterectomy who presents to the ED with abdominal pain found to have ileus, right hydronephrosis and lung nodule. Right-sided hydronephrosis -urology consult New lung nodule -oncology consult new retroperitoneal soft tissue lymphadenopathy vs fibrosis ? r/t whole pelvic radiation from endometrial adenocarcinoma -oncology consult Abdominal pain Ileus on CT had successful bowel monvements Abdominal pain improved gnr bacturia unreliable symptom history, will treat with ceftriaxone, follow up culture Diabetes -SSI, POC LLE DVT January 2019 continue eliquis Hyperlipidemia Continue statin CKD Creatinine at baseline Mild Dementia Continue donepezil
--- NOTE | 2021-01-28 10:33 | MHC.CM.PN ---
Patient lives with her boyfriend, independent at baseline, has home oxygen for use at night, will not need for transport home. Boyfriend will come to drive her home. Anticipate home with no services.
[2021-01-28] MEDS: Insulin Lispro 100 UNIT/ML 3 ML VIAL SUBCUT (11:35)
[2021-01-28 11:41] LABS: Glucose, Whole Blood 152 mg/dL (60-115)
--- NOTE | 2021-01-28 14:15 | PM.HEMONCCN ---
Subjective - Subjective Patient: new to practice Consult date: 01/28/21 Requesting Physician: Stephanie. Primary Care Provider: Franny Abel MD Medical Summary: DIAGNOSIS: NEW LUNG NODULE. HPI - Consult Narrative Reason for consult: Consult for new lung nodule. Narrative: Jasmine Dailey is a pleasant 75 year old lady,presented to the emergency department with abdominal pain. She reported abdominal pain for the past 5 days primarily located in her left lower quadrant. She denied nausea or vomiting. She has had some diarrhea but reports a small formed stool. Currently she is not experiencing any abdominal pain. She also reports decreased appetite as well as weight loss, although she is unsure how much. Lab work was unremarkable. Scan of the abdomen showed: New right hydronephrosis and right proximal ureteral dilatation as well as abnormal new retroperitoneal soft tissue. Also seen were fluid filled loops of small and large bowel the colon is distended and fluid-filled down to the rectum. This probably represents an ileus. A new 8 mm right lower lobe nodule is also present, worrisome for neoplasm. ROS: She does feel rather fatigued. She denies any pulmonary symptoms. No cough nor sputum. No chest pain or trouble breathing. Appetite has decreased. Weight is down. Review of Systems - Constitutional Reports system reviewed and no additional complaints, except as documented, Reports lack of energy, Reports poor appetite, Reports weight loss - Eyes Reports system reviewed and no additional complaints, except as documented - ENT Reports system reviewed and no additional complaints, except as documented - Cardiovascular Reports system reviewed and no additional complaints, except as documented - Respiratory Reports no additional respiratory complaints - Gastrointestinal Reports system reviewed and no additional complaints, except as documented, Reports abdominal pain, Reports diarrhea - Genitourinary Reports no additional female genitourinary complaints - Musculoskeletal Reports system reviewed and no additional complaints, except as documented - Integumentary/Breasts Skin/Breast: Reports no additional skin complaints - Neurologic Reports system reviewed and no additional complaints, except as documented - Psychiatric Reports system reviewed and no additional complaints, except as documented - Endocrine Reports no additional endocrine complaints - Hematologic/Lymphatic Reports system reviewed and no additional complaints, except as documented - Allergic/Immunologic Reports system reviewed and no additional complaints, except as documented PMFSH Medical History: Medical History (Last Reviewed 01/31/21 @ 11:02 by Catherine Tucker PT) CKD (chronic kidney disease) COPD (chronic obstructive pulmonary disease) Diabetes DVT (deep venous thrombosis) Endometrial adenocarcinoma HTN (hypertension) Kidney disease Pulmonary fibrosis Functional capacity: uses cane/walker Patient : No Family History: Family History (Last Reviewed 01/27/21 @ 15:38 by MIYA Edmonds) Father Colon cancer Family history: reviewed and not pertinent Surgical History: Surgical History (Last Reviewed 01/31/21 @ 11:02 by Catherine Tucker, PT) H/O hysterectomy with oophorectomy Hx of cholecystectomy S/P IVC filter Social History: Social History (Last Updated 01/27/21 @ 15:38 by MIYA Edmonds) Living Situation History: Household Members: Other Alcohol History: Alcohol intake: never Occupation Assessmet: service: No Current occupational status: unemployed Smoking status: Never smoker Home Medications and Allergies Current Medications: Current Medications Generic Name Dose Route Start Last Admin Trade Name Freq PRN Reason Stop Dose Admin Acetaminophen 650 mg 01/27/21 18:46 Acetaminophen 325 Mg Tablet PO Q6H PRN Pain, Mild (Pain Scale 1-3) Albuterol/Ipratropium 3 ml 01/27/21 18:46 Albuterol/Iprat 2.5/0.5mg 3 Ml Ampul.Neb INHALE QID PRN wheezing Apixaban 5 mg 01/27/21 21:00 01/28/21 08:29 Apixaban 5 Mg Tablet PO 5 mg BID RUBEN Administration Atorvastatin Calcium 20 mg 01/28/21 09:00 01/28/21 08:29 Atorvastatin Calcium 20 Mg Tablet PO 20 mg DAILY RUBEN Administration Betamethasone Dipropion Augmented 1 appl 01/27/21 21:00 01/28/21 08:29 Betamethasone Dip Aug 0.05% Cr 15 Gm Tube TOPICAL 1 appl BID RUBEN Administration Docusate Sodium 100 mg 01/28/21 09:00 01/28/21 08:29 Docusate Sodium 100 Mg Capsule PO 100 mg DAILY RUBEN Administration Donepezil HCl 5 mg 01/27/21 21:00 01/27/21 20:38 Donepezil Hcl 5 Mg Tablet PO 5 mg BEDTIME RUBEN Administration Famotidine 20 mg 01/27/21 21:00 01/28/21 08:29 Famotidine 20 Mg Tablet PO 20 mg BID RUBEN Administration Ceftriaxone Sodium 1 gm/ 50 mls @ 100 mls/hr 01/28/21 14:00 Sodium Chloride IV Q24H [facility] Insulin Human Lispro 0 unit 01/27/21 18:46 01/28/21 11:35 Insulin Lispro 100 Unit/Ml 3 Ml Vial SUBCUT 2 unit QIDACHS [facility] Administration Protocol Ondansetron HCl 4 mg 01/27/21 18:46 Ondansetron Hcl 4 Mg/2 Ml Vial IVPUSH Q8H PRN Nausea and Vomiting Pharmacy Consult 1 each 01/27/21 15:01 Consult Rx Perform Med Rec MISCELLANE ONCE PRN Consult order Sodium Chloride 3 ml 01/27/21 18:46 01/28/21 08:29 0.9 % Sodium Chloride Flush 3 Ml Syringe IVFLUSH 3 ml QSHIFT [facility] Administration Home Medications Medication Instructions Recorded Confirmed Type Eliquis 5 mg PO BID 01/27/21 01/27/21 History Trulicity 0.75 mg SUBCUT QWEEK 01/27/21 01/27/21 History atorvastatin 20 mg PO DAILY 01/27/21 01/27/21 History donepezil 5 mg PO BEDTIME 01/27/21 01/27/21 History famotidine 20 mg PO BID 01/27/21 01/27/21 History glipizide 5 mg PO BIDAC 01/27/21 01/27/21 History halobetasol propionate 1 appl TOPICAL BID 01/27/21 01/27/21 History ipratropium-albuterol 1 vial INHALATION QID PRN 01/27/21 01/27/21 History Allergies Allergy/AdvReac Type Severity Reaction Status Date / Time fish derived [FISH] Allergy Intermediate RASH Verified 01/27/21 08:45 iodine [IODINE] Allergy Intermediate BLISTERS Verified 01/27/21 08:45 Penicillins [PENICILLINS] Allergy Mild RASH Verified 01/27/21 08:45 oxycodone [OXYCODONE] Allergy Unknown ITCHING Verified 01/27/21 08:45 Physical Exam Vital signs: Vital Signs Temp 97.8 F 01/28/21 11:14 Pulse 100 01/28/21 11:14 Resp 19 01/28/21 11:14 BP 101/68 01/28/21 11:14 Pulse Ox 91 L 01/28/21 11:14 Intake & Output 01/27/21 01/28/21 01/28/21 18:59 06:59 18:59 Intake Total 1050 / 1350 300 / 1350 Balance 1050 / 1350 300 / 1350 Intake: Intake, Oral Amount 300 / 300 Intake, IV Amount 1050 / 1050 cefTRIAXone sodium 1 gm In 0.9 50 / 50 % Sodium Chloride 50 ml @ 100 mls/hr IV ONCE ONE Rx#: [id number] 0.9 % Sodium Chloride 1,000 ml 1000 / 1000 @ 999 mls/hr IVCONT .Q1H1M RUBEN Rx#:[id number] Other: Number of Unmeasured Voids 3 Urine Bathroom Urine Color Yellow Last Bowel Movement 01/27/21 Weight 62.5 kg Weight 62.5 kg - Constitutional Present: mild distress. Absent: no acute distress - Routine HEENT Exam Head: Present: atraumatic Eye: Present: normal appearance ENT: Present: mucous membranes moist - Routine Neck Exam Absent: tenderness - Routine Respiratory Exam Present: CTAB - Routine Cardiovascular Exam Cardiovascular: Present: RRR, S1, S2 - Routine Abdominal Exam Present: soft, nontender - Routine Rectal Exam Patient deferred: digital exam - Routine Extremities Exam Present: nontender - Routine Skin Exam Present: intact - Routine Neurological Exam Present: alert, oriented X3 - Detailed Neurological Exam: Coma Scale Eye Opening: Spontaneous (4) Verbal Response: Oriented (5) Motor Response: Obeys commands (6) Blu Coma Scale Total: 15 - Routine Psychiatric Exam Present: depressed Hem/Onc Consult Result - Labs CBC & Chem 7: 01/31/21 06:07 01/31/21 06:07 Labs: Short CBC 01/28/21 Range/Units 06:45 WBC 9.3 (4.8-10.8) X10*3/uL Hgb 12.5 (12.0-16.0) g/dl Hct 38.6 (37-47) % Plt Count 425 H (160-400) X10*3/uL BMP 01/28/21 06:45 Sodium 140 Potassium 4.4 Chloride 105 Carbon Dioxide 26 BUN 16 Creatinine 1.03 Calcium 9.0 Assessment and Plan (1) Lung nodule Status: Acute This is a pleasant 75-year-old lady who presented with abdominal pain. That has resolved now. Incidentally noted was a new right lung nodule: 8 mm. Differential diagnosis: 1. Metastatic disease: She does have a remote history of endometrial carcinoma. 2. Primary lung cancer: Would be unusual especially since she is a nonsmoker. 3. An infectious/inflammatory etiology: More likely. Various management parameters for solitary pulmonary nodules are in the literature. According to the UPDATED 2017 Fleischner Society recommendations, the advised follow up imaging for solid nodules < 6 mm is: LOW RISK PATIENT: No routine follow up. HIGH RISK PATIENT: Optional CT at 12 months. 6-8 mm: LOW RISK: CT at 6-[address] at 18-24 months. HIGH-RISK: CT at 6-12 months and then, CT at 18-24 months. If > 8mm: LOW RISK: CT at 3 months, PET-CT or tissue sampling. HIGH RISK: CT at 3 months, PET-CT or tissue sampling. Reference: Guidelines for Management of Incidental Pulmonary Nodules Detected on CT Images: From the Fleischner Society 2017. PLAN: According to the above guidelines she qualifies for CT at 6 months. She is a nonsmoker and is consequently low risk. Thank you, CC: Dr. Franny Abel.
[2021-01-28] MEDS: cefTRIAXone sodium 1 GM in 0.9 % Sodium Chloride 50 ML IV (14:33)
[2021-01-28 16:29] LABS: Glucose, Whole Blood 73 mg/dL (60-115)
[2021-01-28] MEDS: Donepezil HCl 5 MG TABLET PO (20:41)
[2021-01-28 20:43] LABS: Glucose, Whole Blood 98 mg/dL (60-115)
[2021-01-29 03:55] VITALS: BP 123/74; PULSE 104; RESP 16; TEMP 36.8; O2SAT 95
[2021-01-29 07:32] LABS: Glucose, Whole Blood 119 mg/dL (60-115)
[2021-01-29 07:37] VITALS: BP 120/67; PULSE 117; RESP 18; TEMP 36.6; O2SAT 91
[2021-01-29] MEDS: Acetaminophen 325 MG TABLET 650 MG PO (08:00)
[2021-01-29] MEDS: Docusate Sodium 100 MG CAPSULE PO (08:00)
[2021-01-29] MEDS: 0.9 % Sodium Chloride Flush 3 ML SYRINGE IVFLUSH ×2 (08:00→14:42)
[2021-01-29] MEDS: Famotidine 20 MG TABLET PO ×2 (08:00→19:40)
[2021-01-29] MEDS: Atorvastatin Calcium 20 MG TABLET PO (08:00)
[2021-01-29] MEDS: Apixaban 5 MG TABLET PO ×2 (08:00→19:40)
[2021-01-29] MEDS: Betamethasone Dip Aug 0.05% Cr 15 GM TUBE 1 APPL TOPICAL ×2 (08:05→19:43)
--- NOTE | 2021-01-29 10:39 | HO.PM.IMPN ---
Subjective Subjective Date of Service: 01/29/21 Interval History: abd pain Cardiovascular Cardiovascular: Reports no additional cardiovascular complaints Gastrointestinal Gastrointestinal: Reports no additional gastrointestinal complaints Physical Exam Vital Signs: Vital Signs: Last Vital Signs Temp 97.9 F 01/29/21 07:37 Pulse 117 H 01/29/21 07:37 Resp 18 01/29/21 07:37 BP 120/67 01/29/21 07:37 Pulse Ox 91 L 01/29/21 07:37 Body Mass Index 23.6 General: Alert, no acute distress Resp: CTA bilateral CVS: S1,S2,RRR GI: soft, non tender, non distended Neuro: motor grossly intact Psych: appropriate affect Objective Data Current Medications Generic Name Dose Route Start Last Admin Trade Name Freq PRN Reason Stop Dose Admin Acetaminophen 650 mg 01/27/21 18:46 01/29/21 08:00 Acetaminophen 325 Mg Tablet PO 650 mg Q6H PRN Administration Pain, Mild (Pain Scale 1-3) Albuterol/Ipratropium 3 ml 01/27/21 18:46 Albuterol/Iprat 2.5/0.5mg 3 Ml Ampul.Neb INHALE QID PRN wheezing Apixaban 5 mg 01/27/21 21:00 01/29/21 08:00 Apixaban 5 Mg Tablet PO 5 mg BID RUBEN Administration Atorvastatin Calcium 20 mg 01/28/21 09:00 01/29/21 08:00 Atorvastatin Calcium 20 Mg Tablet PO 20 mg DAILY RUBEN Administration Betamethasone Dipropion Augmented 1 appl 01/27/21 21:00 01/29/21 08:05 Betamethasone Dip Aug 0.05% Cr 15 Gm Tube TOPICAL 1 appl BID RUBEN Administration Docusate Sodium 100 mg 01/28/21 09:00 01/29/21 08:00 Docusate Sodium 100 Mg Capsule PO 100 mg DAILY RUBEN Administration Donepezil HCl 5 mg 01/27/21 21:00 01/28/21 20:41 Donepezil Hcl 5 Mg Tablet PO 5 mg BEDTIME RUBEN Administration Famotidine 20 mg 01/27/21 21:00 01/29/21 08:00 Famotidine 20 Mg Tablet PO 20 mg BID RUBEN Administration Ceftriaxone Sodium 1 gm/ 50 mls @ 100 mls/hr 01/28/21 14:00 01/28/21 15:10 Sodium Chloride IV Infused Q24H [facility]EN Infusion Insulin Human Lispro 0 unit 01/27/21 18:46 01/29/21 07:29 Insulin Lispro 100 Unit/Ml 3 Ml Vial SUBCUT Not Given QIDACHS [facility] Protocol Ondansetron HCl 4 mg 01/27/21 18:46 Ondansetron Hcl 4 Mg/2 Ml Vial IVPUSH Q8H PRN Nausea and Vomiting Pharmacy Consult 1 each 01/27/21 15:01 Consult Rx Perform Med Rec MISCELLANE ONCE PRN Consult order Sodium Chloride 3 ml 01/27/21 18:46 01/29/21 08:00 0.9 % Sodium Chloride Flush 3 Ml Syringe IVFLUSH 3 ml QSHIFT [facility] Administration Labs CBC & Chem 7: 01/28/21 06:45 01/28/21 06:45 Microbiology Microbiology Results: Microbiology 01/27/21 10:59 Urine clean catch - Clean Catch Midstream Urine Culture - Final Escherichia coli Assessment and Plan (1) Lung nodule: Status: Acute Assessment and Plan: This is a 75-year-old female with a history of mild dementia, diabetes, DVT, hypertension, CKD, endometrial adenocarcinoma s/p chemotherapy, radiation and total abdominal hysterectomy who presents to the ED with abdominal pain found to have ileus, right hydronephrosis and lung nodule. Right-sided hydronephrosis -urology consult New lung nodule -oncology consult new retroperitoneal soft tissue lymphadenopathy vs fibrosis ? r/t whole pelvic radiation from endometrial adenocarcinoma -oncology consult Abdominal pain Ileus on CT had successful bowel monvements Abdominal pain improved, but then recurred, will check kub ecoli bacturia - pansensitive unreliable symptom history, will treat with ceftriaxone Diabetes -SSI, POC LLE DVT January 2019 continue eliquis Hyperlipidemia Continue statin CKD Creatinine at baseline Mild Dementia Continue donepezil
[2021-01-29 11:23] VITALS: BP 110/70; PULSE 109; RESP 18; TEMP 36.5; O2SAT 92
[2021-01-29 11:36] LABS: Glucose, Whole Blood 102 mg/dL (60-115)
[2021-01-29] MEDS: cefTRIAXone sodium 1 GM in 0.9 % Sodium Chloride 50 ML IV (14:37)
[2021-01-29 15:21] VITALS: BP 106/71; PULSE 100; RESP 18; TEMP 36.2; O2SAT 94
[2021-01-29 16:30] LABS: Glucose, Whole Blood 149 mg/dL (60-115)
[2021-01-29 19:26] VITALS: BP 131/76; PULSE 108; RESP 16; TEMP 36; O2SAT 92
[2021-01-29] MEDS: Donepezil HCl 5 MG TABLET PO (19:40)
[2021-01-29 20:28] LABS: Glucose, Whole Blood 116 mg/dL (60-115)
[2021-01-30] VITALS (7 sets, daily range): BP systolic 111–136; BP diastolic 63–80; PULSE 93–103; RESP 16–20; TEMP 36.2–37.1; O2SAT 91–95
[2021-01-30] MEDS: 0.9 % Sodium Chloride Flush 3 ML SYRINGE IVFLUSH ×4 (00:06→23:14)
[2021-01-30] MEDS: Acetaminophen 325 MG TABLET 650 MG PO (04:00)
[2021-01-30 06:34] LABS: MANUAL DIFF FLAG NO
[2021-01-30 06:47] LABS: Basophils Absolute Auto 0.1 X10*3/uL (0.0-0.2); Basophils Percent Auto 0.5 % (0-2); Eosinophils Absolute Auto 0.1 X10*3/uL (0.0-0.4); Hematocrit 38.6 % (37-47); Hemoglobin 12.9 g/dl (12.0-16.0); Imm Gran Abs Auto 0.03 X10*3/uL (0.00-0.03); Imm Gran Pct Auto 0.3 % (0.0-0.4); Lymphocytes Absolute Auto 1.5 X10*3/uL (1.2-4.9); Lymphocytes Percent Auto 14.6 % (20-40); Mean Corpuscular HGB Conc 33.4 g/dl (31.0-35.0); Mean Corpuscular Hemoglobin 31.9 pg (27.0-33.0); Mean Corpuscular Volume 95.5 fL (80-98); Mean Platelet Volume 9.7 fL (9.4-12.3); Monocytes Absolute Auto 1.1 X10*3/uL (0.1-1.2); Monocytes Percent Auto 10.8 % (2-11); Neutrophils Absolute Auto 7.6 X10*3/uL (2.0-8.3); Neutrophils Percent Auto 72.8 % (45-73); Platelet Count 452 X10*3/uL (160-400); Red Blood Count 4.04 X10*6/uL (4.20-5.50); Red Cell Distribution Width 14.3 % (11.0-16.0); White Blood Count 10.4 X10*3/uL (4.8-10.8)
[2021-01-30 07:00] LABS: Blood Urea Nitrogen 20 mg/dL (9-16); Calcium 9.1 mg/dL (8.4-10.2); Creatinine Clr Calc Pharmacy 45.3; Estimated Glomerular Filt Rate 58; Glucose Fasting 104 mg/dL (60-99)
[2021-01-30 07:08] LABS: Anion Gap 16 (12-20); Carbon Dioxide 23 mmol/L (22-29); Chloride 104 mmol/L (96-108); Potassium 4.4 mmol/L (3.3-5.1); Sodium 139 mmol/L (135-145)
--- NOTE | 2021-01-30 07:23 | P.CNUR_ITS ---
History of Present Illness Consult details Consult date: 01/29/21 Narrative: [age] year old [place]-speaking female. Admitted to hospital days ago with history of UTI. On imaging found to have right hydro ureteral nephrosis down to a soft tissue mass just above the junction of the iliac vessels. Prior history of endometrial adenocarcinoma treated with whole pelvis radiation. 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 Oncology has been consulted. From a urologic perspective creatinine remains at 0.9 which is the lowest level we have on record going back a number of years. There is no acute need for intervention at this point in time however stenting may be warranted should there be decline in renal function. Recommend Lasix renogram to show current right-sided function. Review of Systems Review of Systems: Yes all other systems are reviewed and are negative PMFSH Past Medical History Medical History (Updated 01/29/21 @ 12:33 by Axel Tirado MD) CKD (chronic kidney disease) COPD (chronic obstructive pulmonary disease) Diabetes DVT (deep venous thrombosis) Endometrial adenocarcinoma HTN (hypertension) Kidney disease Pulmonary fibrosis Functional capacity: uses cane/walker Family History Family History Father Colon cancer Family history: reviewed and not pertinent Surgical History Surgical History (Updated 01/28/21 @ 14:23 by Meng Hdz MD) H/O hysterectomy with oophorectomy Hx of cholecystectomy S/P IVC filter Social History Social History (Updated 01/27/21 @ 15:38 by MIYA Edmonds) Household Members: Other Alcohol intake: never Smoking Status: Never smoker Use of substances other than those prescribed or required for medical reasons: No Advance Directives: No Advance Directives Information Provided: No service: No Current occupational status: unemployed Meds Allergies Allergy/AdvReac Type Severity Reaction Status Date / Time fish derived [FISH] Allergy Intermediate RASH Verified 01/27/21 08:45 iodine [IODINE] Allergy Intermediate BLISTERS Verified 01/27/21 08:45 Penicillins [PENICILLINS] Allergy Mild RASH Verified 01/27/21 08:45 oxycodone [OXYCODONE] Allergy Unknown ITCHING Verified 01/27/21 08:45 Active Medications: Current Medications Generic Name Dose Route Start Last Admin Trade Name Freq PRN Reason Stop Dose Admin Acetaminophen 650 mg 01/27/21 18:46 01/30/21 04:00 Acetaminophen 325 Mg Tablet PO 650 mg Q6H PRN Administration Pain, Mild (Pain Scale 1-3) Albuterol/Ipratropium 3 ml 01/27/21 18:46 Albuterol/Iprat 2.5/0.5mg 3 Ml Ampul.Neb INHALE QID PRN wheezing Apixaban 5 mg 01/27/21 21:00 01/29/21 19:40 Apixaban 5 Mg Tablet PO 5 mg BID RUBEN Administration Atorvastatin Calcium 20 mg 01/28/21 09:00 01/29/21 08:00 Atorvastatin Calcium 20 Mg Tablet PO 20 mg DAILY RUBEN Administration Betamethasone Dipropion Augmented 1 appl 01/27/21 21:00 01/29/21 19:43 Betamethasone Dip Aug 0.05% Cr 15 Gm Tube TOPICAL 1 appl BID RUBEN Administration Docusate Sodium 100 mg 01/28/21 09:00 01/29/21 08:00 Docusate Sodium 100 Mg Capsule PO 100 mg DAILY RUBEN Administration Donepezil HCl 5 mg 01/27/21 21:00 01/29/21 19:40 Donepezil Hcl 5 Mg Tablet PO 5 mg BEDTIME RUBEN Administration Famotidine 20 mg 01/27/21 21:00 01/29/21 19:40 Famotidine 20 Mg Tablet PO 20 mg BID RUBEN Administration Ceftriaxone Sodium 1 gm/ 50 mls @ 100 mls/hr 01/28/21 14:00 01/29/21 15:24 Sodium Chloride IV Infused Q24H [facility] Infusion Insulin Human Lispro 0 unit 01/27/21 18:46 01/29/21 20:35 Insulin Lispro 100 Unit/Ml 3 Ml Vial SUBCUT Not Given QIDACHS [facility] Protocol Ondansetron HCl 4 mg 01/27/21 18:46 Ondansetron Hcl 4 Mg/2 Ml Vial IVPUSH Q8H PRN Nausea and Vomiting Pharmacy Consult 1 each 01/27/21 15:01 Consult Rx Perform Med Rec MISCELLANE ONCE PRN Consult order Sodium Chloride 3 ml 01/27/21 18:46 01/30/21 00:06 0.9 % Sodium Chloride Flush 3 Ml Syringe IVFLUSH 3 ml QSHIFT RUBEN Administration Home Medications Medication Instructions Recorded Confirmed Last Taken Type apixaban [Eliquis] 5 mg PO BID 01/27/21 01/27/21 Unknown History atorvastatin 20 mg PO DAILY 01/27/21 01/27/21 Unknown History donepezil 5 mg PO BEDTIME 01/27/21 01/27/21 Unknown History dulaglutide [Trulicity] 0.75 mg SUBCUT QWEEK 01/27/21 01/27/21 Unknown History famotidine 20 mg PO BID 01/27/21 01/27/21 Unknown History glipizide 5 mg PO BIDAC 01/27/21 01/27/21 Unknown History halobetasol propionate 1 appl TOPICAL BID 01/27/21 01/27/21 Unknown History ipratropium-albuterol 1 vial INHALATION QID PRN 01/27/21 01/27/21 Unknown History Physical Exam Vital Signs: Vital Signs: Last Vital Signs Temp 98.3 F 01/30/21 03:57 Pulse 101 H 01/30/21 03:57 Resp 18 01/30/21 03:57 BP 115/71 01/30/21 03:57 Pulse Ox 95 01/30/21 03:57 Body Mass Index 23.6 Const: General: cooperative, healthy appearing, comfortable and no acute distress Nutritional Appearance: average body habitus Orientation/consciousness: oriented to person, oriented to place and oriented to time Eyes: General: appearance normal, both eyes and all related structures Chest: Chest palpation & inspection: normal inspection of the chest Resp: Effort & Inspection: normal respiratory effort Cardio: Rate: regular rate GI: Inspection: Yes normal to inspection Skin: Hair: normal Neuro: General: oriented to person, oriented to place and oriented to time Extrem: General: Yes normal to inspection Results Labs Result diagrams: 01/30/21 06:16 01/30/21 06:16 Labs: Abnormal lab results 01/29/21 01/29/21 01/29/21 Range/Units 07:19 16:19 20:21 RBC (4.20-5.50) X10*6/uL Plt Count (160-400) X10*3/uL Lymph % (Auto) (20-40) % BUN (9-16) mg/dL POC Glucose 119 H 149 H 116 H (60-115) mg/dL Fasting Glucose (60-99) mg/dL 01/30/21 01/30/21 Range/Units 06:16 06:16 RBC 4.04 L (4.20-5.50) X10*6/uL Plt Count 452 H (160-400) X10*3/uL Lymph % (Auto) 14.6 L (20-40) % BUN 20 H (9-16) mg/dL POC Glucose (60-115) mg/dL Fasting Glucose 104 H (60-99) mg/dL Short CBC 01/30/21 Range/Units 06:16 WBC 10.4 (4.8-10.8) X10*3/uL Hgb 12.9 (12.0-16.0) g/dl Hct 38.6 (37-47) % Plt Count 452 H (160-400) X10*3/uL BMP 01/30/21 06:16 Sodium 139 Potassium 4.4 Chloride 104 Carbon Dioxide 23 BUN 20 H Creatinine 0.94 Calcium 9.1 Urine 01/27/21 Range/Units 11:06 Urine Color YELLOW Urine Appearance CLOUDY Urine pH 6.0 (5.0-8.0) Ur Specific [place] 1.025 (1.005-1.025) Urine Protein NEG (NEG-TRACE) MG/DL Urine Glucose (UA) NEG (NEG) MG/DL All other labs normal. There is right hydronephrosis. The right proximal ureter is dilated the right distal ureter does not appear dilated. No stone is seen. There is abnormal soft tissue seen in the retroperitoneum which may be because of a right ureteral obstruction. Assessment and Plan (1) Hydronephrosis: Status: Acute Lasix renogram to confirm renal function Procedures Date of Service Date of Service: 01/29/21
[2021-01-30 07:46] LABS: Glucose, Whole Blood 110 mg/dL (60-115)
[2021-01-30] MEDS: Apixaban 5 MG TABLET PO ×2 (08:52→19:22)
[2021-01-30] MEDS: Famotidine 20 MG TABLET PO ×2 (08:52→19:22)
[2021-01-30] MEDS: Docusate Sodium 100 MG CAPSULE PO (08:52)
[2021-01-30] MEDS: Atorvastatin Calcium 20 MG TABLET PO (08:52)
[2021-01-30] MEDS: Betamethasone Dip Aug 0.05% Cr 15 GM TUBE 1 APPL TOPICAL ×2 (08:53→19:26)
--- NOTE | 2021-01-30 09:15 | HO.PM.IMPN ---
Subjective Subjective Date of Service: 01/30/21 Interval History: pain improved Cardiovascular Cardiovascular: Reports no additional cardiovascular complaints Genitourinary Genitourinary: Reports no additional female genitourinary complaints Physical Exam Vital Signs: Vital Signs: Last Vital Signs Temp 98.3 F 01/30/21 07:33 Pulse 103 H 01/30/21 07:33 Resp 16 01/30/21 07:33 BP 113/63 01/30/21 07:33 Pulse Ox 93 01/30/21 07:33 Body Mass Index 23.6 General: Alert, no acute distress Resp: CTA bilateral CVS: S1,S2,RRR GI: soft, non tender, non distended Neuro: motor grossly intact Psych: appropriate affect Objective Data Current Medications Generic Name Dose Route Start Last Admin Trade Name Freq PRN Reason Stop Dose Admin Acetaminophen 650 mg 01/27/21 18:46 01/30/21 04:00 Acetaminophen 325 Mg Tablet PO 650 mg Q6H PRN Administration Pain, Mild (Pain Scale 1-3) Albuterol/Ipratropium 3 ml 01/27/21 18:46 Albuterol/Iprat 2.5/0.5mg 3 Ml Ampul.Neb INHALE QID PRN wheezing Apixaban 5 mg 01/27/21 21:00 01/30/21 08:52 Apixaban 5 Mg Tablet PO 5 mg BID RUBEN Administration Atorvastatin Calcium 20 mg 01/28/21 09:00 01/30/21 08:52 Atorvastatin Calcium 20 Mg Tablet PO 20 mg DAILY RUBEN Administration Betamethasone Dipropion Augmented 1 appl 01/27/21 21:00 01/30/21 08:53 Betamethasone Dip Aug 0.05% Cr 15 Gm Tube TOPICAL 1 appl BID RUBEN Administration Docusate Sodium 100 mg 01/28/21 09:00 01/30/21 08:52 Docusate Sodium 100 Mg Capsule PO 100 mg DAILY RUBEN Administration Donepezil HCl 5 mg 01/27/21 21:00 01/29/21 19:40 Donepezil Hcl 5 Mg Tablet PO 5 mg BEDTIME RUBEN Administration Famotidine 20 mg 01/27/21 21:00 01/30/21 08:52 Famotidine 20 Mg Tablet PO 20 mg BID RUBEN Administration Ceftriaxone Sodium 1 gm/ 50 mls @ 100 mls/hr 01/28/21 14:00 01/29/21 15:24 Sodium Chloride IV Infused Q24H [facility] Infusion Insulin Human Lispro 0 unit 01/27/21 18:46 01/30/21 07:36 Insulin Lispro 100 Unit/Ml 3 Ml Vial SUBCUT Not Given QIDACHS [facility] Protocol Ondansetron HCl 4 mg 01/27/21 18:46 Ondansetron Hcl 4 Mg/2 Ml Vial IVPUSH Q8H PRN Nausea and Vomiting Pharmacy Consult 1 each 01/27/21 15:01 Consult Rx Perform Med Rec MISCELLANE ONCE PRN Consult order Sodium Chloride 3 ml 01/27/21 18:46 01/30/21 07:38 0.9 % Sodium Chloride Flush 3 Ml Syringe IVFLUSH 3 ml QSHIFT [facility] Administration Labs CBC & Chem 7: 01/30/21 06:16 01/30/21 06:16 Microbiology Microbiology Results: Microbiology 01/27/21 10:59 Urine clean catch - Clean Catch Midstream Urine Culture - Final Escherichia coli Assessment and Plan (1) Lung nodule: Status: Acute Assessment and Plan: This is a 75-year-old female with a history of mild dementia, diabetes, DVT, hypertension, CKD, endometrial adenocarcinoma s/p chemotherapy, radiation and total abdominal hysterectomy who presents to the ED with abdominal pain found to have ileus, right hydronephrosis and lung nodule. Right-sided hydronephrosis plan for lasix renogram, possible stent New lung nodule -oncology following new retroperitoneal soft tissue lymphadenopathy vs fibrosis ? r/t whole pelvic radiation from endometrial adenocarcinoma -oncology following Abdominal pain Ileus on CT resolved ecoli bacturia - pansensitive unreliable symptom history, continue ceftriaxone day 4/5 Diabetes -SSI, POC LLE DVT January 2019 continue eliquis Hyperlipidemia Continue statin CKD Creatinine at better than baseline Mild Dementia Continue donepezil COPD/ILD stable
[2021-01-30 11:53] LABS: Glucose, Whole Blood 156 mg/dL (60-115)
[2021-01-30] MEDS: Insulin Lispro 100 UNIT/ML 3 ML VIAL SUBCUT (12:07)
--- NOTE | 2021-01-30 12:52 | MHC.CM.PN ---
AT TIME OF HOSPITALIST ROUNDS, IT WAS UNCLEAR IF PATIENT WILL NEED STENT. PLAN WILL BE FOR DISCHARGE BY Saturday01/31/21
[2021-01-30] MEDS: cefTRIAXone sodium 1 GM in 0.9 % Sodium Chloride 50 ML IV (14:43)
[2021-01-30 16:33] LABS: Glucose, Whole Blood 133 mg/dL (60-115)
[2021-01-30] MEDS: Donepezil HCl 5 MG TABLET PO (19:22)
[2021-01-30 20:24] LABS: Glucose, Whole Blood 126 mg/dL (60-115)
[2021-01-31 03:38] VITALS: BP 135/81; PULSE 98; RESP 16; TEMP 36.5; O2SAT 94
[2021-01-31 06:16] LABS: MANUAL DIFF FLAG NO
[2021-01-31 06:40] LABS: Basophils Absolute Auto 0.1 X10*3/uL (0.0-0.2); Basophils Percent Auto 0.5 % (0-2); Eosinophils Absolute Auto 0.1 X10*3/uL (0.0-0.4); Eosinophils Percent Auto 0.6 % (0-4); Hematocrit 41.5 % (37-47); Imm Gran Abs Auto 0.04 X10*3/uL (0.00-0.03); Imm Gran Pct Auto 0.3 % (0.0-0.4); Lymphocytes Absolute Auto 1.2 X10*3/uL (1.2-4.9); Lymphocytes Percent Auto 9.6 % (20-40); Mean Corpuscular HGB Conc 33.7 g/dl (31.0-35.0); Mean Corpuscular Hemoglobin 32.3 pg (27.0-33.0); Mean Corpuscular Volume 95.6 fL (80-98); Mean Platelet Volume 9.7 fL (9.4-12.3); Monocytes Absolute Auto 1.4 X10*3/uL (0.1-1.2); Monocytes Percent Auto 11.1 % (2-11); Neutrophils Percent Auto 77.9 % (45-73); Platelet Count 489 X10*3/uL (160-400); Red Blood Count 4.34 X10*6/uL (4.20-5.50); Red Cell Distribution Width 14.1 % (11.0-16.0); White Blood Count 12.9 X10*3/uL (4.8-10.8)
[2021-01-31 06:46] LABS: Anion Gap 16 (12-20); Blood Urea Nitrogen 22 mg/dL (9-16); Calcium 9.2 mg/dL (8.4-10.2); Carbon Dioxide 25 mmol/L (22-29); Chloride 103 mmol/L (96-108); Creatinine Clr Calc Pharmacy 39.8; Estimated Glomerular Filt Rate 50; Glucose Fasting 132 mg/dL (60-99); Sodium 140 mmol/L (135-145)
[2021-01-31 07:39] VITALS: BP 140/86; PULSE 113; RESP 18; TEMP 36.6; O2SAT 95
[2021-01-31 07:54] LABS: Glucose, Whole Blood 124 mg/dL (60-115)
[2021-01-31] MEDS: Docusate Sodium 100 MG CAPSULE PO (08:02)
[2021-01-31] MEDS: Apixaban 5 MG TABLET PO (08:02)
[2021-01-31] MEDS: Betamethasone Dip Aug 0.05% Cr 15 GM TUBE 1 APPL TOPICAL (08:02)
[2021-01-31] MEDS: Atorvastatin Calcium 20 MG TABLET PO (08:02)
[2021-01-31] MEDS: Famotidine 20 MG TABLET PO (08:02)
[2021-01-31] MEDS: 0.9 % Sodium Chloride Flush 3 ML SYRINGE IVFLUSH (08:03)
--- NOTE | 2021-01-31 10:36 | P.DS_ITS ---
DS: Providers Provider Date of Service: 03/25/21 Date of admission: 01/27/21 15:12 Primary care physician: Franny Abel MD Consults: 01/27/21 15:11 Consult to Hematology / Oncology Routine Consulting Provider: Meng Hdz Reason for consultation: New lung nodule Has provider been notified: No Consult to Urology Routine Consulting Provider: Yared Wing Reason for consultation: Hydronephrosis Has provider been notified: No DS: Diagnosis Discharge Diagnosis (1) Lung nodule: Status: Acute DS: Medications Discharge Medications Home Medications: Home Medications Medication Instructions Recorded Confirmed apixaban [Eliquis] 5 mg PO BID 01/27/21 01/27/21 atorvastatin 20 mg PO DAILY 01/27/21 01/27/21 donepezil 5 mg PO BEDTIME 01/27/21 01/27/21 dulaglutide [Trulicity] 0.75 mg SUBCUT QWEEK 01/27/21 01/27/21 famotidine 20 mg PO BID 01/27/21 01/27/21 glipizide 5 mg PO BIDAC 01/27/21 01/27/21 halobetasol propionate 1 appl TOPICAL BID 01/27/21 01/27/21 ipratropium-albuterol 1 vial INHALATION QID PRN 01/27/21 01/27/21 DS: Summary Hospital Course Hospital Course: Chief Complaint: Abdominal pain This is a 75-year-old female who presents to the emergency department with abdominal pain. She reports abdominal pain for the past 4 days primarily located in her left lower quadrant. She denies nausea or vomiting. She has had some diarrhea but reports a small formed stool yesterday. Currently she is not experiencing any abdominal pain. She reports decreased appetite as well as weight loss, although she is unsure how much. Lab work was unremarkable. Scan of the abdomen which showed new right hydronephrosis and right proximal ureteral dilatation as well as abnormal new retroperitoneal soft tissue. Also seen were fluid filled loops of small and large bowel the colon is distended and fluid- filled down to the rectum. This probably represents an ileus. A new 8 mm right lower lobe nodule is also present and worrisome for neoplasm. Hospital course:75-year-old female with a history of mild dementia, diabetes, DVT, hypertension, CKD, endometrial adenocarcinoma s/p chemotherapy, radiation and total abdominal hysterectomy who presents to the ED with abdominal pain found to have ileus, right hydronephrosis and lung nodule. Right-sided hydronephrosis. Dr. Wing recommmeded Lasix renogram which showed the following EFT KIDNEY: This kidney is significantly smaller than the right and shows significantly diminished perfusion and function. Mild to moderate caliectasis is present but there is no dilatation or abnormal retention in the left renal pelvis. Significant outflow obstruction is not present. RIGHT KIDNEY: This kidney is significantly larger than the left and shows significantly better perfusion and function than the left, as quantitated above. Moderate hydronephrosis is present and low-grade partial outflow obstruction, likely at the ureteropelvic junction, is present. Renal function normal and Dr. Wing is not planning any procedure. New lung nodule new retroperitoneal soft tissue lymphadenopathy vs fibrosis R/t whole pelvic radiation from endometrial adenocarcinoma -oncology is recommending 6 months follow Abdominal pain--No obstruction but ileus seen on CT, this has resolved and tolerating diet, pain may have been related to UTI as well. ecoli UTi, pansensitive, has completed 5 days of ceftriaxone Diabetes -SSI, POC LLE DVT since January 2019 continue eliquis Hyperlipidemia Continue statin CKD Creatinine at better than baseline, Creat 1.07 today, GFR 50 Mild Dementia Continue donepezil COPD/ILD stable Patient is going home with daughter, initially she had said she wanted to go to rehab but in the end decided to go back home with daughter who is healthcare proxy, and at this time patient' s decision making is not sound and I invoke health care proxy and rest decision making to her daughter who said they have resources at home including wheelchair, TEST SPECIALIST and children.. Time Spent with Patient Time attestation: Total time spent providing and/or coordinating discharge services: Discharge coordination time: Greater than 30 minutes Physical Exam Vital Signs: Vital Signs: Last Vital Signs Temp 97.8 F 01/31/21 07:39 Pulse 113 H 01/31/21 07:39 Resp 18 01/31/21 07:39 BP 140/86 H 01/31/21 07:39 Pulse Ox 95 01/31/21 07:39 Body Mass Index 23.6 DS: Data Data Completed and Pending Labs on day of discharge: Laboratory Results - last 24 hr 01/30/21 01/30/21 01/30/21 11:14 16:28 20:15 WBC RBC Hgb Hct MCV MCH MCHC RDW Plt Count MPV Immature Gran % (Auto) Neut % (Auto) Lymph % (Auto) [place] % (Auto) Eos % (Auto) Baso % (Auto) Lymph # (Auto) [place] # (Auto) Eos # (Auto) Baso # (Auto) Abs Immat Gran (auto) Absolute Neuts (auto) Absolute Nucleated RBC Nucleated RBC % (auto) Sodium Potassium Chloride Carbon Dioxide Anion Gap BUN Creatinine Estim Creat Clear Calc Estimated GFR POC Glucose 156 H 133 H 126 H Fasting Glucose Calcium 01/31/21 01/31/21 01/31/21 06:07 06:07 07:38 WBC 12.9 H RBC 4.34 Hgb 14.0 Hct 41.5 MCV 95.6 MCH 32.3 MCHC 33.7 RDW 14.1 Plt Count 489 H MPV 9.7 Immature Gran % (Auto) 0.3 Neut % (Auto) 77.9 H Lymph % (Auto) 9.6 L [place] % (Auto) 11.1 H Eos % (Auto) 0.6 Baso % (Auto) 0.5 Lymph # (Auto) 1.2 [place] # (Auto) 1.4 H Eos # (Auto) 0.1 Baso # (Auto) 0.1 Abs Immat Gran (auto) 0.04 H Absolute Neuts (auto) 10.0 H Absolute Nucleated RBC 0.000 Nucleated RBC % (auto) 0.0 Sodium 140 Potassium 4.0 Chloride 103 Carbon Dioxide 25 Anion Gap 16 BUN 22 H Creatinine 1.07 Estim Creat Clear Calc 39.8 Estimated GFR 50 POC Glucose 124 H Fasting Glucose 132 H Calcium 9.2 Discharge Plan Discharge Anticipated Discharge Date/Time: 01/31/21 17:05 Patient Disposition: Home, Self-Care Referrals: Franny Abel MD [Primary Care Provider] - Discharge Medications: New prednisone 20 mg tablet 20 mg PO DAILY Qty: 20 RF: 0 Continued atorvastatin 20 mg tablet 20 mg PO DAILY RF: 0 ipratropium-albuterol 0.5 mg-3 mg(2.5 mg base)/3 mL solution for nebulization 1 vial inhalation QID PRN (Reason: wheezing) RF: 0 donepezil 5 mg tablet 5 mg PO BEDTIME RF: 0 famotidine 20 mg tablet 20 mg PO BID RF: 0 halobetasol propionate 0.05 % cream 1 appl topical BID RF: 0 glipizide 5 mg tablet 5 mg PO BIDAC RF: 0 Eliquis 5 mg tablet 5 mg PO BID RF: 0 Trulicity 0.75 mg/0.5 mL pen injector 0.75 mg subcut QWEEK RF: 0 Discharge Orders: Discharge Order (Routine); Ordered 01/31/21 Ordered By: Michael Pat Diet: advance to usual diet Activity on Discharge: As tolerated Stand Alone Forms: Patient Portal Discharge page Care Plan Goals: prevent rehospitalization and follow up on lung nodule and pelvics lesion with dr. Hdz Health Concerns: lung nodule, pelvic leasion, gout Plan of Treatment: Take prednisone for gount, follow up with Dr. Hdz for lung nodule and follow up with Dr. Wing for hydronephrosis Assessment: lung nodule, pelvic Discharge Date/Time: 01/31/21 17:46
[2021-01-31 11:01] VITALS: BP 140/86; PULSE 113; O2SAT 95
[2021-01-31 11:04] LABS: Glucose, Whole Blood 151 mg/dL (60-115)
[2021-01-31] MEDS: predniSONE 20 MG TABLET PO (11:16)
[2021-01-31] MEDS: traMADoL HCL 50 MG TABLET 25 MG PO (11:16)
--- NOTE | 2021-01-31 11:22 | PM.UROPN ---
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 Plan on outpatient cystoscopy, bilateral retrogrades in potential stent placement on the right side Physical Exam Vital Signs: Vital Signs: Last Vital Signs Temp 97.8 F 01/31/21 07:39 Pulse 113 H 01/31/21 11:01 Resp 18 01/31/21 07:39 BP 140/86 H 01/31/21 11:01 Pulse Ox 95 01/31/21 11:01 Body Mass Index 23.6 Const: General: cooperative, healthy appearing, comfortable and no acute distress Nutritional Appearance: average body habitus Orientation/consciousness: oriented to person, oriented to place and oriented to time Eyes: General: appearance normal, both eyes and all related structures Chest: Chest palpation & inspection: normal inspection of the chest Resp: Effort & Inspection: normal respiratory effort Cardio: Rate: regular rate GI: Inspection: Yes normal to inspection Skin: Hair: normal Neuro: General: oriented to person, oriented to place and oriented to time Extrem: General: Yes normal to inspection Urology Results Labs CBC & Chem 7: 01/31/21 06:07 01/31/21 06:07 Labs: Laboratory Results - last 24 hr 01/30/21 01/30/21 01/30/21 11:14 16:28 20:15 WBC RBC Hgb Hct MCV MCH MCHC RDW Plt Count MPV Immature Gran % (Auto) Neut % (Auto) Lymph % (Auto) [place] % (Auto) Eos % (Auto) Baso % (Auto) Lymph # (Auto) [place] # (Auto) Eos # (Auto) Baso # (Auto) Abs Immat Gran (auto) Absolute Neuts (auto) Absolute Nucleated RBC Nucleated RBC % (auto) Sodium Potassium Chloride Carbon Dioxide Anion Gap BUN Creatinine Estim Creat Clear Calc Estimated GFR POC Glucose 156 H 133 H 126 H Fasting Glucose Calcium 01/31/21 01/31/21 01/31/21 06:07 06:07 07:38 WBC 12.9 H RBC 4.34 Hgb 14.0 Hct 41.5 MCV 95.6 MCH 32.3 MCHC 33.7 RDW 14.1 Plt Count 489 H MPV 9.7 Immature Gran % (Auto) 0.3 Neut % (Auto) 77.9 H Lymph % (Auto) 9.6 L [place] % (Auto) 11.1 H Eos % (Auto) 0.6 Baso % (Auto) 0.5 Lymph # (Auto) 1.2 [place] # (Auto) 1.4 H Eos # (Auto) 0.1 Baso # (Auto) 0.1 Abs Immat Gran (auto) 0.04 H Absolute Neuts (auto) 10.0 H Absolute Nucleated RBC 0.000 Nucleated RBC % (auto) 0.0 Sodium 140 Potassium 4.0 Chloride 103 Carbon Dioxide 25 Anion Gap 16 BUN 22 H Creatinine 1.07 Estim Creat Clear Calc 39.8 Estimated GFR 50 POC Glucose 124 H Fasting Glucose 132 H Calcium 9.2 01/31/21 11:01 WBC RBC Hgb Hct MCV MCH MCHC RDW Plt Count MPV Immature Gran % (Auto) Neut % (Auto) Lymph % (Auto) [place] % (Auto) Eos % (Auto) Baso % (Auto) Lymph # (Auto) [place] # (Auto) Eos # (Auto) Baso # (Auto) Abs Immat Gran (auto) Absolute Neuts (auto) Absolute Nucleated RBC Nucleated RBC % (auto) Sodium Potassium Chloride Carbon Dioxide Anion Gap BUN Creatinine Estim Creat Clear Calc Estimated GFR POC Glucose 151 H Fasting Glucose Calcium Progress Note: A&P Assessment and plan (1) Hydronephrosis: Status: Acute Fall Risk Details Current Medications: Current Medications Generic Name Dose Route Start Last Admin Trade Name Freq PRN Reason Stop Dose Admin Acetaminophen 650 mg 01/27/21 18:46 01/30/21 04:00 Acetaminophen 325 Mg Tablet PO 650 mg Q6H PRN Administration Pain, Mild (Pain Scale 1-3) Albuterol/Ipratropium 3 ml 01/27/21 18:46 Albuterol/Iprat 2.5/0.5mg 3 Ml Ampul.Neb INHALE QID PRN wheezing Apixaban 5 mg 01/27/21 21:00 01/31/21 08:02 Apixaban 5 Mg Tablet PO 5 mg BID RUBEN Administration Atorvastatin Calcium 20 mg 01/28/21 09:00 01/31/21 08:02 Atorvastatin Calcium 20 Mg Tablet PO 20 mg DAILY RUBEN Administration Betamethasone Dipropion Augmented 1 appl 01/27/21 21:00 01/31/21 08:02 Betamethasone Dip Aug 0.05% Cr 15 Gm Tube TOPICAL 1 appl BID RUBEN Administration Docusate Sodium 100 mg 01/28/21 09:00 01/31/21 08:02 Docusate Sodium 100 Mg Capsule PO 100 mg DAILY RUBEN Administration Donepezil HCl 5 mg 01/27/21 21:00 01/30/21 19:22 Donepezil Hcl 5 Mg Tablet PO 5 mg BEDTIME RUBEN Administration Famotidine 20 mg 01/27/21 21:00 01/31/21 08:02 Famotidine 20 Mg Tablet PO 20 mg BID RUBEN Administration Ceftriaxone Sodium 1 gm/ 50 mls @ 100 mls/hr 01/28/21 14:00 01/30/21 15:13 Sodium Chloride IV Infused Q24H RUBEN Infusion Insulin Human Lispro 0 unit 01/27/21 18:46 01/31/21 11:18 Insulin Lispro 100 Unit/Ml 3 Ml Vial SUBCUT Not Given QIDACHS [facility] Protocol Ondansetron HCl 4 mg 01/27/21 18:46 Ondansetron Hcl 4 Mg/2 Ml Vial IVPUSH Q8H PRN Nausea and Vomiting Pharmacy Consult 1 each 01/27/21 15:01 Consult Rx Perform Med Rec MISCELLANE ONCE PRN Consult order Sodium Chloride 3 ml 01/27/21 18:46 01/31/21 08:03 0.9 % Sodium Chloride Flush 3 Ml Syringe IVFLUSH 3 ml QSHIFT RUBEN Administration Tramadol HCl 25 mg 01/31/21 11:04 01/31/21 11:16 Tramadol Hcl 50 Mg Tablet PO 25 mg Q4H PRN Administration Pain, Severe (Pain Scale 7-10) Time Spent With Patient Time: Total time spent is greater than 50% in coordination of care (as documented) at patient's floor/unit and/or counseling patient: Time with patient: less than 15 minutes
[2021-01-31 11:32] VITALS: BP 128/92; PULSE 102; RESP 17; TEMP 36.3; O2SAT 96
[2021-01-31 13:57] LABS: COVID-19 Test Negative (Negative)
--- NOTE | 2021-01-31 15:33 | MHC.CM.PN ---
CM MET W/PT AT APPROXIMATELY 3PM WITH TIMBER SUPERVISOR, PT WOULD LIKE TO CHANGER HER HCP TO HER BOYFRIENDS NIECE LINDY SALEH HOWEVER IS UNWILLING TO DO SO UNTIL SHE IS ABLE TO ASK LINDY, PT GAVE CM PERMISSION TO ATTEMPT TO CALL BOYFRIEND AND LINDY, PT DOES NOT HAVE HER CELL PHONE AND CM FOUND A NUMBER FOR PT IN OLD RECORDS HOWEVER PHONE WENT STRAIGHT TO VOICEMAIL, CM CONTACTED PT'S INSURANCE REGARDING D/C AND REQUESTED ANY CONTACT NUMBERS THEY HAD, LIASON FROM [facility] GAVE CM [phone], CM ATTEMPTED TO CALL AT 3:30PM, 3:35PM AND 3:40PM, PHONE RANG SEVERAL TIMES WITH NO PERSON OR VOICEMAIL PICKING UP. LIASON AT [facility] DID HAVE OLD HCP ON FILE THAT NAMES PT DAUGHTER CHELLY MEDEROS HCP. PER ACCEPTING FACILITY THEY NEED A HCP, SINCE PT UNWILLING TO COMPLETE AT THIS TIME, CM REQUEST [facility] LIASON TO FAX TO CM.
[2021-01-31 15:46] VITALS: BP 136/76; PULSE 108; RESP 15; TEMP 36.4; O2SAT 93
--- NOTE | 2021-01-31 15:55 | MHC.CM.PN ---
PER PT REQUEST PT IS DISCHARGING TO [facility], NURSING AND HOSPITALIST AWARE OF PT'S DISPOSITION.
[2021-01-31 16:42] LABS: Glucose, Whole Blood 151 mg/dL (60-115)
--- NOTE | 2021-01-31 16:58 | MHC.CM.PN ---
CM MET WITH PT LATE MORNING AFTER PHYSICAL THERAPY EVAL RECOMMENDED STR, PT AGREEABLE TO GO TO REHAB AND WOULD LIKE TO STAY CLOSE TO HOME, CM REVIEWED OPTIONS UNDER PT'S INSURANCE AND MULTIPLE REFERRALS WERE MADE. CM MET WITH PT VIA LEAD WORKER OF HOUSEKEEPING AND LAUNDRY TO CLARIFY D/C PREFERENCES WITH PT DUE TO NURSING THE DAUGHTER CALLED MULTIPLE TIMES AND WAS DEMANDING PT BE DISCHARGED TODAY AND SENT HOME. PER PT VIA COMPUTER NETWORK SPECIALIST PT DID INDEED WANT TO GO TO REHAB AND WAS AGREEABLE TO [facility] WHEN SHE WAS TOLD THEY HAD OFFERED HER A BED. PT ALSO REPORTED THAT THE DAUGHTER WHO IS HER [employer] OR [employer] OBS[employer]ER JUST WANTS THE MONEY AND IS NOT PROVIDING CARE. PT WAS VERY CLEAR WITH HER WISHES AND WAS ALERT TO SELF, LOCATION AND SITUATION WHEN SPEAKING WITH CM & COMPUTER NETWORK SPECIALIST. DISCHARGE WAS PLANNED FOR [facility] FOR [address]IA [facility]SP[facility]. AT 4:06PM CM FOUND OUT PT'S DAUGHTER WAS IN LOBBY YELLING AT ED CM, DEMANDING HER MOTHER BE DISCHARGED, SWEARING AND REFUSING TO LEAVE, CM NOTIFIED CONSULTING PRACTICE DIRECTOR, HOSPITALIST AND SECURITY. CM WENT IN TO SEE PT AGAIN W/CONSULTING PRACTICE DIRECTOR AND PT WAS STILL VOICING THAT SHE WANTED TO GO TO REHAB AND STATED, WHY WOULD I GO WITH HER? [facility] HOSPITALIST CALLED PT'S DAUGHTER BACK AND CONSULTING PRACTICE DIRECTOR CALLED [employer] [employer] WHO REPORTS WE SHOULD FOLLOW PT'S WISHES. AT APPROXIMATELY 5PM HOSPITALIST AND CONSULTING PRACTICE DIRECTOR CAME INTO OFFICE AND REPORTED THEY MET WITH PT VIA COMPUTER NETWORK SPECIALIST AND REPORTED PT WAS WILLING TO GO HOME AND WOULD NOT BE GOING TO REHAB, DAUGHTER WOULD BE COMING BACK TO TRANSPORT PT. [facility] NOTIFIED [facility] WAS SENT AWAY. NEW D/C PLAN, HOME W/RESUMPTION OF [employer] OR [employer] SERVICES, DAUGHTER TO TRANSPORT.
--- NOTE | 2021-01-31 17:14 | P.EN_ITS ---
Event Note Date of Service: 01/31/21 Event Note: Patient has been unable to make sound and consistent decision about what she want. She has previously said she want to to rehab then said it is up to me then said she is happy to go home with daughter, she is able identify the place as [facility], not able to tell date or circumstances surounding hospitalization, therefore invoking healthcare proxy for daughter to make decision and daughter thinks home is best for patient at this time vs rehab as recommended by PT
== END 2021-01-31 17:46 | disposition home or self-care (01) ==
LOC: HO.ED 14:30 → HO.EDOVER 15:30 → HO.S3 16:10
PROVIDERS: Physician Assistant; Physician Assistant Medical; Admitting Provider Internal Medicine; Emergency Provider Emergency Medicine; PCP Internal Medicine; Visit Provider Internal Medicine
DX: N13.30 Unspecified hydronephrosis (principal); K56.7 Ileus, unspecified; R10.815 Periumbilic abdominal tenderness; R91.1 Solitary pulmonary nodule; J84.10 Pulmonary fibrosis, unspecified; I10 Essential (primary) hypertension; C54.1 Malignant neoplasm of endometrium; R19.7 Diarrhea, unspecified; Z20.822 Contact with and (suspected) exposure to COVID-19; Z90.710 Acquired absence of both cervix and uterus; Z90.721 Acquired absence of ovaries, unilateral; Z90.49 Acquired absence of other specified parts of digestive tract; Z88.5 Allergy status to narcotic agent; Z88.0 Allergy status to penicillin; Z91.013 Allergy to seafood; Z79.4 Long term (current) use of insulin; Z79.899 Other long term (current) drug therapy
CPT/HCPCS: 0241U; 36415; 71045; 74018; 74177; 78700; 80048; 80076; 81001; 81003; 82947; 83690; 83735; 83880; 85025; 85610; 85730; 87086; 87088; 87186; 87635; 93005; 96360; 96365; 96366; 96368; 96375; 97162; 99218; 99285; A9539; J0696; J1200; Q9967

== ENCOUNTER → 2021-02-28 15:39 | Outpatient (BNVA) | payer MEDICARE, SELFPAY | PROVIDERS: PCP Internal Medicine; Visit Provider Urology | DX: N13.30 Unspecified hydronephrosis (principal) | CPT/HCPCS: 99212 ==